=== PATIENT | male | born 1980 | race Caucasian/White ===

== ENCOUNTER 2018-11-19 22:20 | Inpatient (IN) | payer MEDICAID, OTHER ==
[~2018-11-19] VITALS: Ht 157.5 cm; Wt 66.0 kg
[2018-11-20] MEDS ORDERED: IBUPROFEN 600 MG TAB PO ONE (00:30)
--- NOTE | 2018-11-20 00:50 | ERD ---
ER Documentation Chief Complaint Chief Complaint left knee pain/injury while playing soccer x 1 hour ago HPI Patient is a 38-year-old male who presents the ER for concerns of left knee pain x1 hour. Patient was playing soccer when he injured his left knee. He states he twisted and has pain on the lateral aspect of his left knee. Patient denies any head injuries. Patient denies any previous fractures or dislocations. Patient has not taken medications for symptoms. ROS All systems reviewed and are negative except as per history of present illness. Allergies Allergies: Coded Allergies: No Known Drug Allergies (Verified Allergy, Unknown, 11/19/18) PMhx/Soc Medical and Surgical Hx: pt denies Medical Hx, pt denies Surgical Hx Hx Alcohol Use: No Hx Substance Use: No Hx Tobacco Use: No Smoking Status: Never smoker FmHx Family History: No diabetes Physical Exam Vitals Vital Signs Date Temp Pulse Resp B/P (MAP) Pulse Ox O2 O2 Flow FiO2 Time Delivery Rate 11/19/18 98.2 98 18 155/94 99 22:26 (114) Physical Exam GENERAL: Well-developed, well-nourished male. Appears in no acute distress. Speaking in full sentences HEAD: Normocephalic, atraumatic. EYES: Pupils are equally reactive bilaterally. EOMs grossly intact. No conjunctival erythema. ENT: Moist mucous membranes. No uvula deviation. No kissing tonsils. NECK: Supple. No meningismus. Normal range of motion of the neck. LUNG: Clear to auscultation bilaterally. No rhonchi, wheezing, rales or coarse breath sounds. HEART: Regular rate and rhythm. No murmurs, rubs or gallops. EXTREMITIES: Equal pulses bilaterally. No peripheral clubbing, cyanosis or edema. No unilateral leg swelling. NEUROLOGIC: Alert and oriented. Moving all four extremities without any difficulty. Normal speech. Steady gait. SKIN: Normal color. Warm and dry. No rashes or lesions. LLE: No deformity, erythema, ecchymosis or swelling. 1 cm linear abrasion noted across the anterior knee. Tender to palpation over the lateral knee. Nontender palpation over the distal tibia/fibula, midfoot, fifth metatarsal. Decreased range of motion secondary to pain. Unable to extend or flex knee. Normal range of motion of all toes and ankle. Sensation intact to light touch. Neurovascularly intact. (Able to plantarflex, dorsiflex, aguila foot, invert foot, raise big toe.) 2+ DP and DT pulses. Results 24 hrs Current Medications Medications Dose Sig/Arlen Start Time Status Last (Trade) Ordered Route PRN Stop Time Admin Dose Reason Admin Ibuprofen 600 mg ONCE ONCE 11/20/18 DC 11/20/18 (Motrin) PO 00:30 11/20/18 00:19 00:31 1 tab ONCE ONCE 11/20/18 DC Acetaminophen PO 03:30 11/20/18 / 03:31 Hydrocodone Bitart ([place] ()) Procedures/MDM ED COURSE: The patient was stable throughout ED course. I kept the patient and/or family informed of laboratory and diagnostic imaging results throughout the ED course. DIAGNOSTIC IMAGING: Read by radiologist. DIAGNOSTIC IMAGING REPORT Patient: MARVIN PLATT : 1980 Age: 38 Sex: M MR #: [id number] DOS: 11/20/18 0011 Ordering MD: FARRUKH CHRISTY PA-C Location: [facility] Room/Bed: PROCEDURE: XR Knee Left 3 View (Routine) CLINICAL INDICATION: Pain. TECHNIQUE: VIEWS: 3 IMAGES: 3 COMPARISON: None. FINDINGS: OSSEOUS STRUCTURES Fractures: Tibial plateau fracture is present with transverse component involving the proximal tibial diametaphysis and mildly displaced and impacted oblique component extending through the tibial spine region into the lateral diametaphysis. There is additional comminuted fracture of the fibular neck with a butterfly fragment displaced up to 1.2 cm posteriorly. There is approximately 1 cm of impaction of the fibular neck. JOINTS Joint Space(s): Otherwise preserved. Effusion: Moderate large lipohemarthrosis is present. IMPRESSION: 1. Schatzker type 6 fracture of the tibial plateau with transverse diametaphyseal component and additional component extending through the tibial spine region and lateral diametaphysis. There is mild impaction of the lateral diametaphysis. 2. Comminuted displaced fracture of the fibular neck. RPTAT:HGST Marquis Marie, Physician Date Time Electronically viewed and signed by Marquis Marie Physician on 11/20/2018 02:11 GT/ CC: FARRUKH CHRISTY PA-C [id number] MEDICAL DECISION MAKING: This is a 38-year-old male presents the ER for concerns of left knee pain x1 hour. Vital signs were reviewed. Patient was afebrile. Xrays showed 1. Schatzker type 6 fracture of the tibial plateau with transverse diametaphyseal component and additional component extending through the tibial spine region and lateral diametaphysis. There is mild impaction of the lateral diametaphysis. 2. Comminuted displaced fracture of the fibular neck. Patient was given ibuprofen and [place] for his pain. At this time, unable to rule out any meniscus and knee ligament injuries. I did attempt to place a knee immobilizer on the patient however he was unable to straighten his leg secondary to severe pain. Case was discussed with supervising physician Dr. Pierson. Numerous attempts to contact Dr. Oneal, telesales specialist on-call, were made to discuss xray findings. No phone back was received. Patient will be admitted for further management of his tibial plateau fracture and fibular neck fracture. Low suspicion for compartment syndrome. Disclaimer: Inadvertent spelling and grammatical errors are likely due to EHR/dictation software use and do not reflect on the overall quality of patient care. Also, please note that the electronic time recorded on this note does not necessarily reflect the actual time of the patient encounter. Departure Diagnosis: Primary Impression: Tibial plateau fracture, left Encounter type: initial encounter Fracture type: closed Qualified Codes: S82.142A - Displaced bicondylar fracture of left tibia, initial encounter for closed fracture Additional Impression: Fracture of neck of fibula Encounter type: initial encounter Fracture type: closed Laterality: left Qualified Codes: S82.832A - Other fracture of upper and lower end of left fibula, initial encounter for closed fracture Condition: Fair Patient Instructions: Reducing Knee Pain and Swelling Referrals: COMMUNITY CLINICS YOU HAVE RECEIVED A MEDICAL SCREENING EXAM AND THE RESULTS INDICATE THAT YOU DO NOT HAVE A CONDITION THAT REQUIRES URGENT TREATMENT IN THE EMERGENCY DEPARTMENT. FURTHER EVALUATION AND TREATMENT OF YOUR CONDITION CAN WAIT UNTIL YOU ARE SEEN IN YOUR DOCTORS OFFICE WITHIN THE NEXT 1-2 DAYS. IT IS YOUR RESPONSIBILITY TO [facility] AN [facility]. IF YOU HAVE A PRIMARY DOCTOR --you should call your primary doctor and schedule an appointment IF YOU DO NOT HAVE A PRIMARY DOCTOR YOU CAN CALL OUR PHYSICIAN REFERRAL HOTLINE AT IF YOU CAN NOT AFFORD TO SEE A PHYSICIAN YOU CAN CHOSE FROM THE FOLLOWING [facility] [address] [facility] [address] [facility] [address] [facility] [address] [facility] [address] [facility]. [facility] [address] [facility]. [facility] YOU HAVE RECEIVED A MEDICAL SCREENING EXAM AND THE RESULTS INDICATE THAT YOU DO NOT HAVE A CONDITION THAT REQUIRES URGENT TREATMENT IN THE EMERGENCY DEPARTMENT. FURTHER EVALUATION AND TREATMENT OF YOUR CONDITION CAN WAIT UNTIL YOU ARE SEEN IN YOUR DOCTORS OFFICE WITHIN THE NEXT 1-2 DAYS. IT IS YOUR RESPONSIBILITY TO MAKE AN APPOINTMENT FOR [facility]OW-UP CARE. IF YOU HAVE A PRIMARY DOCTOR --you should call your primary doctor and schedule and appointment IF YOU DO NOT HAVE A PRIMARY DOCTOR YOU CAN CALL OUR PHYSICIAN REFERRAL HOTLINE AT . IF YOU CAN NOT AFFORD TO SEE A PHYSICIAN YOU CAN CHOSE FROM THE FOLLOWING [facility] [address] [place] [address] [facility] [address] [place] [address] [facility] [address] [place] [address] [facility] 7 a.m.- 11 p.m. Every Day of the Week NO APPOINTMENT OR AUTHORIZATION NEEDED FARRUKH CHRISTY PA-C November 20, 2018 00:50
[2018-11-20] MEDS ORDERED: HYDROCODONE/APAP (10/325) TAB PO ONE (03:30)
[2018-11-20 06:10] VITALS: BP 128/76; PULSE 87; RESP 18
[2018-11-20 07:00] VITALS: BP 118/61; PULSE 92; RESP 18
[2018-11-20] MEDS ORDERED: HYDROCODONE/APAP (5/325) TAB PO PRN (07:30)
[2018-11-20] MEDS ORDERED: ACETAMINOPHEN 325 MG TAB PO PRN (07:30)
[2018-11-20] MEDS ORDERED: ONDANSETRON 4 MG INJ IV PRN (07:30)
[2018-11-20] MEDS ORDERED: NACL 0.9% 3 ML SYG IV SCH (07:30)
[2018-11-20 08:00] VITALS: Ht 157.5 cm; Wt 66.0 kg
[2018-11-20] MEDS: morphine 2 MG INJ IV PRN ×3 (08:04→16:25)
--- NOTE | 2018-11-20 09:30 | HP ---
Date/Time of Note Date/Time of Note DATE: 11/20/18 TIME: 09:27 Assessment/Plan VTE Prophylaxis Risk score (from Nsg)>0 risk: 7 SCD applied (from Nsg): Yes Pharmacological prophylaxis: heparin Lines/Catheters IV Catheter Type (from Nrsg): Peripheral IV Urinary Cath still in place: No Assessment/Plan Assessment/Plan 38-year-old male with no significant past medical history here with left leg injury while playing soccer is found to have a tibia and fibula fracture PLAN -Pain management -Awaiting Ortho evaluation Result Diagram: 11/20/18 0507 11/20/18 0507 Results 24hrs Laboratory Tests Test 11/20/18 05:07 White Blood Count 12.9 H Red Blood Count 4.48 L Hemoglobin 13.3 L Hematocrit 39.1 L Mean Corpuscular Volume 87.3 Mean Corpuscular Hemoglobin 29.7 Mean Corpuscular Hemoglobin Concent 34.0 Red Cell Distribution Width 14.5 Platelet Count 229 Mean Platelet Volume 10.6 H Immature Granulocytes % 0.400 Neutrophils % 75.3 Lymphocytes % 17.5 Monocytes % 6.2 Eosinophils % 0.3 Basophils % 0.3 Nucleated Red Blood Cells % 0.0 Immature Granulocytes # 0.050 H Neutrophils # 9.7 H Lymphocytes # 2.3 Monocytes # 0.8 Eosinophils # 0.0 Basophils # 0.0 Nucleated Red Blood Cells # 0.0 Prothrombin Time 12.5 Prothrombin Time Ratio 1.0 INR International Normalized Ratio 0.92 Activated Partial Thromboplast Time 26.7 Sodium Level 142 Potassium Level 3.9 Chloride Level 108 Carbon Dioxide Level 21 Anion Gap 13 Blood Urea Nitrogen 14 Creatinine 0.60 L Est Glomerular Filtrat Rate mL/min > 60 Glucose Level 116 Calcium Level 9.3 Total Bilirubin 0.6 Direct Bilirubin 0.00 Indirect Bilirubin 0.6 Aspartate Amino Transf (AST/SGOT) 48 H Alanine Aminotransferase (ALT/SGPT) 55 Alkaline Phosphatase 129 H Total Protein 8.1 Albumin 4.6 Globulin 3.50 H Albumin/Globulin Ratio 1.31 HPI/ROS Admit Date/Time Admit Date/Time November 20, 2018 at 05:15 Hx of Present Illness This is a 38-year-old male with no past medical history who presented to ER complaining of left lower extremity pain. He was playing soccer when he twisted his left leg and since then has been having pain. When he came to the ER he was found to have a TV and fibula fracture. Dr. Oneal, orthopedic surgeon was consulted in the ER. PMH/Family/Social Past Medical History Medical History: no pertinent history Medications Current Medications IV Flush (NS 3 ml) 3 ml PER PROTOCOL IV ; Start 11/20/18 at 07:30 Ondansetron HCl (Zofran Inj) 4 mg Q6H PRN IV NAUSEA/VOMITING; Start 11/20/18 at 07:30 Acetaminophen (Tylenol Tab) 650 mg Q6H PRN PO .PAIN 1-3 OR TEMP; Start 11/20/18 at 07:30 Acetaminophen/ Hydrocodone Bitart ([place] (5/325)) 1 tab Q6H PRN PO .MOD PAIN 4- 6; Start 11/20/18 at 07:30 Acetaminophen/ Hydrocodone Bitart ([place] (5/325)) 2 tab Q6H PRN PO .SEVERE PAIN 7-10; Start 11/20/18 at 07:30 Morphine Sulfate (morphine) 3 mg Q4H PRN IV .SEVERE PAIN 7-10 Last administered on 11/20/18at 08:04; Admin Dose 3 MG; Start 11/20/18 at 07:30 Coded Allergies: No Known Drug Allergies (Verified Allergy, Unknown, 11/19/18) Past Surgical History Past Surgical Hx: no surgical history Family History Significant Family History: no pertinent family hx Social History Alcohol Use: none Smoking Status: Never smoker Drug Use: none Exam/Review of Systems Vital Signs Vitals Vital Signs Date Temp Pulse Resp B/P (MAP) Pulse Ox O2 O2 Flow FiO2 Time Delivery Rate 11/20/18 98.6 87 18 128/76 96 06:10 (93) Exam Constitutional: alert, oriented, well developed Head: normocephalic, atraumatic Eyes: EOMI, PERRL Respiratory: clear to auscultation, normal air movement Cardiovascular: regular rate and rhythm, nl pulses Gastrointestinal: soft, non-tender Extremities: other (Left lower extremity tenderness) STANLEY HWANG MD November 20, 2018 09:30
--- NOTE | 2018-11-20 13:53 | PN ---
Date/Time of Note Date/Time of Note DATE: 11/20/18 TIME: 13:43 Assessment/Plan VTE Prophylaxis Risk score (from [facility])>0 risk: 7 SCD applied (from [facility]): Yes Pharmacological prophylaxis: NA/contraindicated Pharm contraindication: low risk/ambulating Lines/Catheters IV Catheter Type (from [facility]): Peripheral IV Urinary Cath still in place: No Assessment/Plan Hospital Course A/P 1. Tibial Plateau fracture; stable; may proceed to surgery from medical standpoint w low perio risk 2. Ftt; pt/ot/ dme soon S: no events O: vss PE no pallor reg s1s2 no mrg ctab bs+ nt nd no r r g no edema Result Diagram: 11/20/18 0507 11/20/18 0507 Results 24hrs Laboratory Tests Test 11/20/18 05:07 White Blood Count 12.9 H Red Blood Count 4.48 L Hemoglobin 13.3 L Hematocrit 39.1 L Mean Corpuscular Volume 87.3 Mean Corpuscular Hemoglobin 29.7 Mean Corpuscular Hemoglobin Concent 34.0 Red Cell Distribution Width 14.5 Platelet Count 229 Mean Platelet Volume 10.6 H Immature Granulocytes % 0.400 Neutrophils % 75.3 Lymphocytes % 17.5 Monocytes % 6.2 Eosinophils % 0.3 Basophils % 0.3 Nucleated Red Blood Cells % 0.0 Immature Granulocytes # 0.050 H Neutrophils # 9.7 H Lymphocytes # 2.3 Monocytes # 0.8 Eosinophils # 0.0 Basophils # 0.0 Nucleated Red Blood Cells # 0.0 Prothrombin Time 12.5 Prothrombin Time Ratio 1.0 INR International Normalized Ratio 0.92 Activated Partial Thromboplast Time 26.7 Sodium Level 142 Potassium Level 3.9 Chloride Level 108 Carbon Dioxide Level 21 Anion Gap 13 Blood Urea Nitrogen 14 Creatinine 0.60 L Est Glomerular Filtrat Rate mL/min > 60 Glucose Level 116 Calcium Level 9.3 Total Bilirubin 0.6 Direct Bilirubin 0.00 Indirect Bilirubin 0.6 Aspartate Amino Transf (AST/SGOT) 48 H Alanine Aminotransferase (ALT/SGPT) 55 Alkaline Phosphatase 129 H Total Protein 8.1 Albumin 4.6 Globulin 3.50 H Albumin/Globulin Ratio 1.31 Exam/Review of Systems Exam Vitals Vital Signs Date Temp Pulse Resp B/P (MAP) Pulse Ox O2 O2 Flow FiO2 Time Delivery Rate 11/20/18 98.3 92 18 118/61 96 07:00 (80) Results Results 24hrs Laboratory Tests Test 11/20/18 05:07 White Blood Count 12.9 H Red Blood Count 4.48 L Hemoglobin 13.3 L Hematocrit 39.1 L Mean Corpuscular Volume 87.3 Mean Corpuscular Hemoglobin 29.7 Mean Corpuscular Hemoglobin Concent 34.0 Red Cell Distribution Width 14.5 Platelet Count 229 Mean Platelet Volume 10.6 H Immature Granulocytes % 0.400 Neutrophils % 75.3 Lymphocytes % 17.5 Monocytes % 6.2 Eosinophils % 0.3 Basophils % 0.3 Nucleated Red Blood Cells % 0.0 Immature Granulocytes # 0.050 H Neutrophils # 9.7 H Lymphocytes # 2.3 Monocytes # 0.8 Eosinophils # 0.0 Basophils # 0.0 Nucleated Red Blood Cells # 0.0 Prothrombin Time 12.5 Prothrombin Time Ratio 1.0 INR International Normalized Ratio 0.92 Activated Partial Thromboplast Time 26.7 Sodium Level 142 Potassium Level 3.9 Chloride Level 108 Carbon Dioxide Level 21 Anion Gap 13 Blood Urea Nitrogen 14 Creatinine 0.60 L Est Glomerular Filtrat Rate mL/min > 60 Glucose Level 116 Calcium Level 9.3 Total Bilirubin 0.6 Direct Bilirubin 0.00 Indirect Bilirubin 0.6 Aspartate Amino Transf (AST/SGOT) 48 H Alanine Aminotransferase (ALT/SGPT) 55 Alkaline Phosphatase 129 H Total Protein 8.1 Albumin 4.6 Globulin 3.50 H Albumin/Globulin Ratio 1.31 Medications Medication Current Medications IV Flush (NS 3 ml) 3 ml PER PROTOCOL IV ; Start 11/20/18 at 07:30 Ondansetron HCl (Zofran Inj) 4 mg Q6H PRN IV NAUSEA/VOMITING; Start 11/20/18 at 07:30 Acetaminophen (Tylenol Tab) 650 mg Q6H PRN PO .PAIN 1-3 OR TEMP; Start 11/20/18 at 07:30 Acetaminophen/ Hydrocodone Bitart ([place] (5/325)) 1 tab Q6H PRN PO .MOD PAIN 4- 6; Start 11/20/18 at 07:30 Acetaminophen/ Hydrocodone Bitart ([place] (5/325)) 2 tab Q6H PRN PO .SEVERE PAIN 7-10; Start 11/20/18 at 07:30 Morphine Sulfate (morphine) 3 mg Q4H PRN IV .SEVERE PAIN 7-10 Last administered on 11/20/18at 11:30; Admin Dose 3 MG; Start 11/20/18 at 07:30 JAQUELINE SMITH MD November 20, 2018 13:53
[2018-11-20] MEDS: HYDROCODONE/APAP (5/325) TAB PO PRN ×2 (14:14→20:01)
[2018-11-20 15:05] VITALS: BP 135/77; PULSE 92; RESP 18
[2018-11-20] MEDS ORDERED: KETOROLAC 30 MG INJ IV STA (18:36)
--- NOTE | 2018-11-20 19:06 | RADRPT ---
Vent Rate: 81 bpm RR Interval: 740 msec [place] Interval: 146 msec QRS Duration: 80 msec QT Interval: 352 msec QTC Interval: 409 msec P-R-T [place]: 37 - 75 - -9 degrees Sinus rhythm...normal P axis, V-rate 50- 99 ST elevation, consider lateral injury...ST >0.10mV, I aVL V5 V6 Electronically Signed By: aPrish Lenz
[2018-11-20 19:15] VITALS: BP 124/73; PULSE 82; RESP 20
[2018-11-21 02:05] VITALS: BP 115/75; PULSE 81; RESP 20
[2018-11-21] MEDS: HYDROCODONE/APAP (5/325) TAB PO PRN (05:51)
[2018-11-21 07:52] VITALS: BP 110/64; PULSE 88; RESP 18
[2018-11-21] MEDS: morphine 2 MG INJ IV PRN ×2 (08:05→12:48)
--- NOTE | 2018-11-21 11:41 | PN ---
Date/Time of Note Date/Time of Note DATE: 11/21/18 TIME: 11:39 Assessment/Plan VTE Prophylaxis Risk score (from Nsg)>0 risk: 7 SCD applied (from Ns): Yes SCD contraindicated: low risk/ambulating Pharmacological prophylaxis: LMWH Lines/Catheters IV Catheter Type (from Nrsg): Peripheral IV Urinary Cath still in place: No Assessment/Plan Hospital Course A/P 1. Tibial Plateau fracture; stable; may proceed to surgery from medical standpoint w low perio risk - ekg noted; will obtain 1 troponin & echo; completely asymptomatic, no cardiac risk factors. 2. Ftt; pt/ot/ dme soon S: 11/20: no events 11/21: no distress. able to participate w soccer w/o any dyspnea/ chest pain. no FH of early cad/ cancer/ stroke. O: vss PE no pallor reg s1s2 no mrg ctab bs+ nt nd no r r g no edema Result Diagram: 11/21/18 0420 11/21/18 0420 Results 24hrs Laboratory Tests Test 11/21/18 04:20 White Blood Count 8.2 # Red Blood Count 4.17 L Hemoglobin 12.4 L Hematocrit 37.7 L Mean Corpuscular Volume 90.4 Mean Corpuscular Hemoglobin 29.7 Mean Corpuscular Hemoglobin Concent 32.9 Red Cell Distribution Width 14.8 H Platelet Count 217 Mean Platelet Volume 10.7 H Immature Granulocytes % 0.600 H Neutrophils % 58.3 Lymphocytes % 30.0 Monocytes % 7.9 Eosinophils % 2.8 Basophils % 0.4 Nucleated Red Blood Cells % 0.0 Immature Granulocytes # 0.050 H Neutrophils # 4.8 Lymphocytes # 2.5 Monocytes # 0.7 Eosinophils # 0.2 Basophils # 0.0 Nucleated Red Blood Cells # 0.0 Sodium Level 140 Potassium Level 4.7 Chloride Level 103 Carbon Dioxide Level 28 Anion Gap 9 Blood Urea Nitrogen 10 Creatinine 0.75 Est Glomerular Filtrat Rate mL/min > 60 Glucose Level 112 Hemoglobin A1c 5.5 Calcium Level 9.4 Phosphorus Level 4.8 Magnesium Level 2.3 Total Bilirubin 0.8 Direct Bilirubin 0.00 Indirect Bilirubin 0.8 Aspartate Amino Transf (AST/SGOT) 34 Alanine Aminotransferase (ALT/SGPT) 47 Alkaline Phosphatase 123 H Total Protein 7.4 Albumin 4.3 Globulin 3.10 Albumin/Globulin Ratio 1.38 Thyroid Stimulating Hormone (TSH) 3.620 Exam/Review of Systems Exam Vitals Vital Signs Date Temp Pulse Resp B/P (MAP) Pulse Ox O2 O2 Flow FiO2 Time Delivery Rate 11/21/18 99.1 88 18 110/64 96 07:52 (79) 11/21/18 Room Air 02:05 Intake and Output 11/20/18 11/20/18 11/21/18 1515:00 23:00 07:00 IntakeIntake Total 200 ml OutputOutput Total 450 ml 600 ml BalanceBalance -450 ml -400 ml Results Results 24hrs Laboratory Tests Test 11/21/18 04:20 White Blood Count 8.2 # Red Blood Count 4.17 L Hemoglobin 12.4 L Hematocrit 37.7 L Mean Corpuscular Volume 90.4 Mean Corpuscular Hemoglobin 29.7 Mean Corpuscular Hemoglobin Concent 32.9 Red Cell Distribution Width 14.8 H Platelet Count 217 Mean Platelet Volume 10.7 H Immature Granulocytes % 0.600 H Neutrophils % 58.3 Lymphocytes % 30.0 Monocytes % 7.9 Eosinophils % 2.8 Basophils % 0.4 Nucleated Red Blood Cells % 0.0 Immature Granulocytes # 0.050 H Neutrophils # 4.8 Lymphocytes # 2.5 Monocytes # 0.7 Eosinophils # 0.2 Basophils # 0.0 Nucleated Red Blood Cells # 0.0 Sodium Level 140 Potassium Level 4.7 Chloride Level 103 Carbon Dioxide Level 28 Anion Gap 9 Blood Urea Nitrogen 10 Creatinine 0.75 Est Glomerular Filtrat Rate mL/min > 60 Glucose Level 112 Hemoglobin A1c 5.5 Calcium Level 9.4 Phosphorus Level 4.8 Magnesium Level 2.3 Total Bilirubin 0.8 Direct Bilirubin 0.00 Indirect Bilirubin 0.8 Aspartate Amino Transf (AST/SGOT) 34 Alanine Aminotransferase (ALT/SGPT) 47 Alkaline Phosphatase 123 H Total Protein 7.4 Albumin 4.3 Globulin 3.10 Albumin/Globulin Ratio 1.38 Thyroid Stimulating Hormone (TSH) 3.620 Medications Medication Current Medications IV Flush (NS 3 ml) 3 ml PER PROTOCOL IV ; Start 11/20/18 at 07:30 Ondansetron HCl (Zofran Inj) 4 mg Q6H PRN IV NAUSEA/VOMITING; Start 11/20/18 at 07:30 Acetaminophen (Tylenol Tab) 650 mg Q6H PRN PO .PAIN 1-3 OR TEMP; Start 11/20/18 at 07:30 Morphine Sulfate (morphine) 3 mg Q4H PRN IV .SEVERE PAIN 7-10 Last administered on 11/21/18at 08:05; Admin Dose 3 MG; Start 11/20/18 at 07:30 Acetaminophen/ Hydrocodone Bitart ([place] ()) 1 tab Q4H PRN PO MODERATE PAIN LEVEL 4-6; Start 11/21/18 at 12:00 Enoxaparin Sodium (Lovenox) 40 mg DAILY SC ; Start 11/22/18 at 21:00 JAQUELINE SMITH MD November 21, 2018 11:41
[2018-11-21 13:31] VITALS: BP 125/62; PULSE 81; RESP 18
--- NOTE | 2018-11-21 13:47 | RADRPT ---
Echocardiogram Report Patient Name: MARVIN PLATTPatient ID: [id number] : 1980 (38y 10m)Study Date: 11/21/2018 12:44:09 PM Gender: MAccession #: [id number] Tech: Riley [facility] Location: [facility] Ref.Physician: JAQUELINE SMITH Height(Cm): BSA: Weight(Kg): Quality: AdequateAccount #: Procedures: Echocardiographic Report: Transthoracic echocardiogram with complete 2D, M-Mode, and doppler examination. Indications: Abnormal EKG. Measurements: 2D/M Mode Doppler Measurement Value Normal Range Measurement Value Normal Range LVIDd 2D 4.5 [ 4.2 - 5.8 ] cm AV Peak Arslan 1.5 [ 100.0 - 170.0 ] cm/sec LVIDs 2D 2.6 [ 2.5 - 4.0 ] cm AV Peak PG 9.0 [ 2.0 - 9.0 ] mmHg LVPWd 2D 1.0 [ 0.6 - 1.0 ] cm LVOT Peak [place]slan 1.0 [ 70.0 - 110.0 ] cm/sec IVSd 2D 0.9 [ 0.6 - 1.0 ] cm LVOT Peak PG 4.0 [ 2.0 - 6.0 ] mmHg AoR Diam 2D 2.7 [ 2.6 - 3.4 ] cm MV E Peak Arslan 0.8 [ 60.0 - 130.0 ] cm/sec EDV 2D 93.9 [ 62.0 - 150.0 ] ml MV A Peak Arslan 0.6 [ 100.0 - 120.0 ] cm/sec ESV 2D 23.7 [ 21.0 - 61.0 ] ml MV E/A 1.4 [ 0.8 - 1.5 ] ratio EF 2D 74.8 [ 52.0 - 72.0 ] percent MV Decel Time 194 [ 104 - 258 ] msec LA Dimen 2D 2.8 [ 3.0 - 4.0 ] cm Lat E` Arslan 0.1 [ 10.0 - 15.0 ] cm/sec Lateral E/E` 6.5 [ 1.0 - 2.0 ] ratio MV E/A 1.4 [ 0.8 - 1.5 ] ratio TR Peak Arslan 1.9 [ 100.0 - 280.0 ] cm/sec TR Peak PG 14.0 mmHg RVSP 17.0 [ 10.0 - 36.0 ] mmHg Findings: Left Ventricle: Normal left ventricular systolic function. Normal left ventricular cavity size. Normal left ventricular wall thickness. Ejection fraction is visually estimated at 60 %. Tissue Doppler/Mitral Doppler indices are within normal limits. Right Ventricle: Normal right ventricular size. Normal right ventricular systolic function. Left Atrium: The left atrium is normal in size. Right Atrium: The right atrium is normal in size. Mitral Valve: Normal appearance and function of the mitral valve with trace physiologic regurgitation. Aortic Valve: Normal appearance of the aortic valve. No hemodynamically significant aortic stenosis by doppler. Tricuspid Valve: Normal appearance of the tricuspid valve. Estimated peak PA systolic pressure 17 mmHg. There is trace tricuspid regurgitation. Pericardium: Normal pericardium with no significant pericardial effusion. Aorta: Normal aortic root. IVC: Normal size and normal respiratory collapse consistent with normal right atrial pressure. Conclusions: Normal left ventricular systolic function. Normal left ventricular cavity size. Normal left ventricular wall thickness. Ejection fraction is visually estimated at 60 %. Tissue Doppler/Mitral Doppler indices are within normal limits. Normal right ventricular size. Normal right ventricular systolic function. The left atrium is normal in size. The right atrium is normal in size. No significant valvular stenosis or regurgitation seen. Normal pericardium with no significant pericardial effusion. Electronically Signed By: Parish Lenz 2018-11-21 13:47:30 PDT
[2018-11-21] MEDS: HYDROCODONE/APAP (10/325) TAB PO PRN ×2 (15:15→21:14)
--- NOTE | 2018-11-21 19:26 | CONS ---
DATE OF ADMISSION: 11/20/2018 DATE OF CONSULTATION: 11/21/2018 TYPE OF CONSULTATION: Orthopedic surgical. HISTORY OF PRESENT ILLNESS: The patient is a 38-year-old male who was admitted on 11/20/2018 when he was brought into the emergency room because of the painful swelling and limit of motion involving hi s left knee. According to the patient, he sustained valgus stress injury to his left knee when he wa s hit from the lateral side of the proximal portion of the left leg during a soccer game. Denies any other trauma. PHYSICAL EXAMINATION: My examination revealed a 38-year-old male who was not in acute distress. The re was a diffuse swelling around the left knee with the tenderness over the lateral aspect of the pro ximal portion of the left leg. Range of motion of the left knee was considerably limited because of the pain and swelling. Stress test was not carried out because of the obvious pain. There was no ob vious neurovascular compromise involving the left lower extremity. DIAGNOSTIC STUDIES: X-rays of the left knee revealed an obvious fracture involving the lateral tibia l plateau with mild compression along with the fracture involving the fibular neck at the left knee. DIAGNOSTIC IMPRESSION: Lateral tibial plateau fracture of the left knee with mild compression. TREATMENT PLAN: 1. Absolutely no weightbearing. 2. Long leg brace immobilization of the left lower extremity in a long leg brace with a dial lock at the knee joint. 3. CT scan of the left knee with 3D reformation. 4. Further treatment plan pending on the outcome of the CT scan. Dictated By: TERRA GALICIA MD IK/NTS Conf#: [id number] DID#: [id number] CC: STANLEY HWANG MD; JAQUELINE SMITH MD;*EndCC*
[2018-11-21 19:44] VITALS: BP 128/82; PULSE 80; RESP 18
[2018-11-21] MEDS ORDERED: KETOROLAC 30 MG INJ IV STA (20:41)
[2018-11-22 02:37] VITALS: BP 120/80; PULSE 78; RESP 18
[2018-11-22 07:24] VITALS: BP 118/72; PULSE 72; RESP 14
[2018-11-22] MEDS: HYDROCODONE/APAP (10/325) TAB PO PRN ×3 (07:45→19:26)
[2018-11-22 14:33] VITALS: BP 139/81; PULSE 86; RESP 16
--- NOTE | 2018-11-22 15:54 | PN ---
Date/Time of Note Date/Time of Note DATE: 11/22/18 TIME: 15:53 Assessment/Plan VTE Prophylaxis Risk score (from Nsg)>0 risk: 10 SCD applied (from Nsg): Yes SCD contraindicated: low risk/ambulating Pharmacological prophylaxis: LMWH Lines/Catheters IV Catheter Type (from Nrsg): Peripheral IV Urinary Cath still in place: No Assessment/Plan Hospital Course A/P 1. Tibial Plateau fracture; stable; NWB surgery vs non operative mngmnt -may proceed to surgery from medical standpoint w low perio risk - ekg noted; obtained trop/ echo; completely asymptomatic, no cardiac risk factors. 2. Ftt; pt/ot/ dme soon S: 11/20: no events 11/21: no distress. able to participate w soccer w/o any dyspnea/ chest pain. no FH of early cad/ cancer/ stroke. 11/22: No events O: vss PE no pallor reg s1s2 no mrg ctab bs+ nt nd no r r g no edema Result Diagram: 11/21/1841911/21/18 0420 Results 24hrs Laboratory Tests Test 11/22/18 04:49 Troponin I < 0.012 Exam/Review of Systems Exam Vitals Vital Signs Date Temp Pulse Resp B/P (MAP) Pulse Ox O2 O2 Flow FiO2 Time Delivery Rate 11/22/18 98.5 86 16 139/81 100 Room Air 14:33 (100) Intake and Output 11/21/18 11/21/18 11/22/18 1515:00 23:00 07:00 IntakeIntake Total 120 ml 300 ml OutputOutput Total 300 ml 900 ml BalanceBalance -300 ml 120 ml -600 ml Results Results 24hrs Laboratory Tests Test 11/22/18 04:49 Troponin I < 0.012 Medications Medication Current Medications IV Flush (NS 3 ml) 3 ml PER PROTOCOL IV ; Start 11/20/18 at 07:30 Ondansetron HCl (Zofran Inj) 4 mg Q6H PRN IV NAUSEA/VOMITING; Start 11/20/18 at 07:30 Acetaminophen (Tylenol Tab) 650 mg Q6H PRN PO .PAIN 1-3 OR TEMP; Start 11/20/18 at 07:30 Morphine Sulfate (morphine) 3 mg Q4H PRN IV .SEVERE PAIN 7-10 Last administered on 11/21/18at 12:48; Admin Dose 3 MG; Start 11/20/18 at 07:30 Acetaminophen/ Hydrocodone Bitart ([place] ()) 1 tab Q4H PRN PO MODERATE PAIN LEVEL 4-6 Last administered on 11/22/18at 14:04; Admin Dose 1 TAB; Start 11/21/18 at 12:00 Enoxaparin Sodium (Lovenox) 40 mg DAILY SC ; Start 11/22/18 at 21:00 JAQUELINE SMITH MD November 22, 2018 15:54
[2018-11-22 19:20] VITALS: BP 153/85; PULSE 90; RESP 20
[2018-11-22] MEDS: morphine 2 MG INJ IV PRN (21:02)
[2018-11-22] MEDS: ENOXAPARIN 40 MG/0.4 ML SYG SC SCH (21:09)
[2018-11-22] MEDS ORDERED: MAGNESIUM HYDROXIDE 30ML CUP PO PRN (22:30)
[2018-11-22] MEDS ORDERED: MAGNESIUM HYDROXIDE 30ML CUP PO ONE (22:30)
[2018-11-23] MEDS: HYDROCODONE/APAP (10/325) TAB PO PRN ×4 (01:14→18:57)
[2018-11-23 02:35] VITALS: BP 132/75; PULSE 64; RESP 20
[2018-11-23 08:04] VITALS: BP 123/79; PULSE 72; RESP 18
[2018-11-23] MEDS: SENNA TAB PO SCH ×2 (08:27→21:11)
[2018-11-23] MEDS: ENOXAPARIN 40 MG/0.4 ML SYG SC SCH (08:32)
--- NOTE | 2018-11-23 13:42 | PN ---
Date/Time of Note Date/Time of Note DATE: 11/23/18 TIME: 13:41 Assessment/Plan VTE Prophylaxis Risk score (from Nsg)>0 risk: 5 SCD applied (from Nsg): Yes SCD contraindicated: low risk/ambulating Pharmacological prophylaxis: LMWH Lines/Catheters IV Catheter Type (from Nrsg): Peripheral IV Urinary Cath still in place: No Assessment/Plan Hospital Course A/P 1. Tibial Plateau fracture; stable; NWB surgery vs non operative mngmnt tbd. -may proceed to surgery from medical standpoint w low perio risk - ekg noted; obtained trop/ echo; completely asymptomatic, no cardiac risk factors. 2. Ftt; pt/ot/ dme soon S: 11/20: no events 11/21: no distress. able to participate w soccer w/o any dyspnea/ chest pain. no FH of early cad/ cancer/ stroke. 11/22: No events 11/23: mod pain; no dyspnea O: vss PE no pallor reg s1s2 no mrg ctab bs+ nt nd no r r g no edema; braced lt leg Result Diagram: 11/21/18 0420 11/21/18 0420 Exam/Review of Systems Exam Vitals Vital Signs Date Temp Pulse Resp B/P (MAP) Pulse Ox O2 O2 Flow FiO2 Time Delivery Rate 11/23/18 98.3 72 18 123/79 99 Room Air 08:04 (94) Intake and Output 11/22/18 11/22/18 11/23/18 1515:00 23:00 07:00 IntakeIntake Total 700 ml 200 ml 300 ml OutputOutput Total 900 ml 450 ml 1300 ml BalanceBalance -200 ml -250 ml -1000 ml Medications Medication Current Medications IV Flush (NS 3 ml) 3 ml PER PROTOCOL IV ; Start 11/20/18 at 07:30 Ondansetron HCl (Zofran Inj) 4 mg Q6H PRN IV NAUSEA/VOMITING; Start 11/20/18 at 07:30 Acetaminophen (Tylenol Tab) 650 mg Q6H PRN PO .PAIN 1-3 OR TEMP; Start 11/20/18 at 07:30 Morphine Sulfate (morphine) 3 mg Q4H PRN IV .SEVERE PAIN 7-10 Last administered on 11/22/18at 21:02; Admin Dose 3 MG; Start 11/20/18 at 07:30 Acetaminophen/ Hydrocodone Bitart ([place] ()) 1 tab Q4H PRN PO MODERATE PAIN LEVEL 4-6 Last administered on 11/23/18at 12:30; Admin Dose 1 TAB; Start 11/21/18 at 12:00 Enoxaparin Sodium (Lovenox) 40 mg DAILY SC Last administered on 11/23/18at 08:32; Admin Dose 40 MG; Start 11/22/18 at 21:00 Magnesium Hydroxide (Milk Of Mag) 30 ml Q12 PRN PO CONSTIPATION; Start 11/22/18 at 22:30 Senna (Senokot) 2 tab BID PO Last administered on 11/23/18at 08:27; Admin Dose 2 TAB; Start 11/23/18 at 09:00 JAQUELINE SMITH MD November 23, 2018 13:42
[2018-11-23 19:20] VITALS: BP 127/65; PULSE 76; RESP 20
[2018-11-23] MEDS: morphine 4 MG/ML VIAL IV PRN (21:15)
[2018-11-24 01:52] VITALS: BP 140/84; PULSE 78; RESP 16
[2018-11-24] MEDS: morphine 4 MG/ML VIAL IV PRN ×4 (01:57→18:29)
[2018-11-24 07:41] VITALS: BP 142/80; PULSE 76; RESP 18
[2018-11-24] MEDS: SENNA TAB PO SCH ×3 (09:00→19:54)
--- NOTE | 2018-11-24 11:42 | PN ---
Date/Time of Note Date/Time of Note DATE: 11/24/18 TIME: 11:42 Assessment/Plan VTE Prophylaxis Risk score (from Ns)>0 risk: 6 SCD applied (from Nsg): Yes Pharmacological prophylaxis: LMWH Lines/Catheters IV Catheter Type (from Nrsg): Saline Lock Urinary Cath still in place: No Assessment/Plan Hospital Course SUBJECTIVE: Complains of left knee pain. OBJECTIVE: Physical Exam General: Adequately build 38 year-old male lying in bed in no apparent distress. HEENT: Normocephalic, atraumatic. Eyes: Anicteric sclerae, conjunctivae clear. ENT: Nasal septum midline, oral mucosa moist. Neck supple, no JVD noticed. Respiratory: Bilaterally clear breath sounds. No use of accessory muscles of respiration. No adventitious breath sounds. Cardiovascular: S1, S2 heard. Regular rate and rhythm. Abdomen: Soft, nontender, and nondistended. Bowel sounds positive in all 4 quadrants. Genitourinary: Deferred. Extremities: No cyanosis, no clubbing, no edema. Peripheral pulses palpable. Left lower extremity long brace in place. Neurologic: Cranial nerves II through XII grossly intact. The patient is awake, alert, and oriented. Skin: Normal skin turgor. No skin rashes. Labs & Vitals per chart ASSESSMENT & PLAN 38-year-old male with no significant comorbidities who had a left knee pain/injury while playing soccer and he came to the emergency room with x-ray showing fracture of the tibial plateau with transverse metaphyseal component and additional component extending through the tibial spine region and lateral diametaphysis along with comminuted displaced fracture of the fibular neck who was admitted to inpatient setting for further treatment and evaluation. 1. Left tibial plateau fracture with fibula fracture -Status post immobilization and evaluation by orthopedic surgery. -Plan for ORIF. -Continue nonweightbearing. -Continue anticoagulation. 2. Normocytic anemia. -Etiology unclear. -Monitor H&H closely. 3. Fluids, electrolytes, and nutrition. -Regular diet. 4. DVT prophylaxis. -Subcutaneous Lovenox. 5. Plan. -Await ORIF. -Continue pain control. The patient was seen in collaboration with Dr. Yeh. Result Diagram: 11/21/1841911/21/18419 Exam/Review of Systems Exam Vitals Vital Signs Date Temp Pulse Resp B/P (MAP) Pulse Ox O2 O2 Flow FiO2 Time Delivery Rate 11/24/18 99.2 76 18 142/80 97 07:41 (100) 11/24/18 Room Air 01:52 Intake and Output 11/23/18 11/23/18 11/24/18 1515:00 23:00 07:00 IntakeIntake Total 500 ml 600 ml OutputOutput Total 1100 ml 800 ml BalanceBalance -600 ml -200 ml Medications Medication Current Medications IV Flush (NS 3 ml) 3 ml PER PROTOCOL IV ; Start 11/20/18 at 07:30 Ondansetron HCl (Zofran Inj) 4 mg Q6H PRN IV NAUSEA/VOMITING; Start 11/20/18 at 07:30 Acetaminophen (Tylenol Tab) 650 mg Q6H PRN PO .PAIN 1-3 OR TEMP; Start 11/20/18 at 07:30 Acetaminophen/ Hydrocodone Bitart ([place] (10/325)) 1 tab Q4H PRN PO MODERATE PAIN LEVEL 4-6 Last administered on 11/23/18at 18:57; Admin Dose 1 TAB; Start 11/21/18 at 12:00 Enoxaparin Sodium (Lovenox) 40 mg DAILY SC Last administered on 11/23/18at 08:32; Admin Dose 40 MG; Start 11/22/18 at 21:00; Status Hold Magnesium Hydroxide (Milk Of Mag) 30 ml Q12 PRN PO CONSTIPATION; Start 11/22/18 at 22:30 Senna (Senokot) 2 tab BID PO Last administered on 11/23/18at 21:11; Admin Dose 2 TAB; Start 11/23/18 at 09:00 Morphine Sulfate (morphine) 4 mg Q4H PRN IV .SEVERE PAIN 7-10 Last administered on 11/24/18at 07:56; Admin Dose 4 MG; Start 11/23/18 at 14:00 ANNIKA JOY NP November 24, 2018 11:42
[2018-11-24 13:47] VITALS: BP 139/77; PULSE 70; RESP 18
[2018-11-24] MEDS: HYDROCODONE/APAP (10/325) TAB PO PRN ×2 (17:17→22:15)
[2018-11-24 20:43] VITALS: BP 134/81; PULSE 91; RESP 18
[2018-11-25] VITALS (28 sets, daily range): BP systolic 111–175; BP diastolic 61–107; PULSE 72–120; RESP 13–23
[2018-11-25] MEDS: morphine 4 MG/ML VIAL IV PRN ×3 (02:12→12:26)
[2018-11-25] MEDS: HYDROCODONE/APAP (10/325) TAB PO PRN (06:03)
[2018-11-25] MEDS: SENNA TAB PO SCH ×2 (09:00→20:42)
--- NOTE | 2018-11-25 10:29 | PN ---
Date/Time of Note Date/Time of Note DATE: 11/25/18 TIME: 10:28 Assessment/Plan VTE Prophylaxis Risk score (from Ns)>0 risk: 7 SCD applied (from Nsg): Yes Pharmacological prophylaxis: LMWH Lines/Catheters IV Catheter Type (from Nrsg): Saline Lock Urinary Cath still in place: No Assessment/Plan Hospital Course SUBJECTIVE: Complains of left knee pain. OBJECTIVE: Physical Exam General: Adequately build 38 year-old male lying in bed in no apparent distress. HEENT: Normocephalic, atraumatic. Eyes: Anicteric sclerae, conjunctivae clear. ENT: Nasal septum midline, oral mucosa moist. Neck supple, no JVD noticed. Respiratory: Bilaterally clear breath sounds. No use of accessory muscles of respiration. No adventitious breath sounds. Cardiovascular: S1, S2 heard. Regular rate and rhythm. Abdomen: Soft, nontender, and nondistended. Bowel sounds positive in all 4 quadrants. Genitourinary: Deferred. Extremities: No cyanosis, no clubbing, no edema. Peripheral pulses palpable. Left lower extremity long brace in place. Neurologic: Cranial nerves II through XII grossly intact. The patient is awake, alert, and oriented. Skin: Normal skin turgor. No skin rashes. Labs & Vitals per chart ASSESSMENT & PLAN 38-year-old male with no significant comorbidities who had a left knee pain/injury while playing soccer and he came to the emergency room with x-ray showing fracture of the tibial plateau with transverse metaphyseal component and additional component extending through the tibial spine region and lateral diametaphysis along with comminuted displaced fracture of the fibular neck who was admitted to inpatient setting for further treatment and evaluation. 1. Left tibial plateau fracture with fibula fracture -Status post immobilization and evaluation by orthopedic surgery. -Plan for ORIF. -Continue nonweightbearing. -Continue anticoagulation. 2. Normocytic anemia. -Etiology unclear. -Monitor H&H closely. 3. Fluids, electrolytes, and nutrition. -Regular diet. 4. DVT prophylaxis. -Subcutaneous Lovenox. 5. Plan. -Await ORIF. -Continue pain control. The patient was seen in collaboration with Dr. Yeh. Result Diagram: 11/25/18 0452 11/25/18 0452 Results 24hrs Laboratory Tests Test 11/25/18 04:52 White Blood Count 8.8 Red Blood Count 4.29 L Hemoglobin 12.5 L Hematocrit 38.9 L Mean Corpuscular Volume 90.7 Mean Corpuscular Hemoglobin 29.1 Mean Corpuscular Hemoglobin Concent 32.1 Red Cell Distribution Width 13.9 Platelet Count 352 # Mean Platelet Volume 10.3 Immature Granulocytes % 0.300 Neutrophils % 57.6 Lymphocytes % 29.2 Monocytes % 6.4 Eosinophils % 6.0 Basophils % 0.5 Nucleated Red Blood Cells % 0.0 Immature Granulocytes # 0.030 Neutrophils # 5.1 Lymphocytes # 2.6 Monocytes # 0.6 Eosinophils # 0.5 Basophils # 0.0 Nucleated Red Blood Cells # 0.0 Sodium Level 140 Potassium Level 4.5 Chloride Level 99 Carbon Dioxide Level 29 Anion Gap 12 Blood Urea Nitrogen 18 Creatinine 0.78 Est Glomerular Filtrat Rate mL/min > 60 Glucose Level 110 Calcium Level 10.2 Phosphorus Level 5.4 H Magnesium Level 2.2 Exam/Review of Systems Exam Vitals Vital Signs Date Temp Pulse Resp B/P (MAP) Pulse Ox O2 O2 Flow FiO2 Time Delivery Rate 11/25/18 97.8 74 18 121/80 98 Room Air 08:03 (94) Intake and Output 11/24/18 11/24/18 11/25/18 1515:00 23:00 07:00 IntakeIntake Total 400 ml OutputOutput Total 300 ml 500 ml BalanceBalance 100 ml -500 ml Results Results 24hrs Laboratory Tests Test 11/25/18 04:52 White Blood Count 8.8 Red Blood Count 4.29 L Hemoglobin 12.5 L Hematocrit 38.9 L Mean Corpuscular Volume 90.7 Mean Corpuscular Hemoglobin 29.1 Mean Corpuscular Hemoglobin Concent 32.1 Red Cell Distribution Width 13.9 Platelet Count 352 # Mean Platelet Volume 10.3 Immature Granulocytes % 0.300 Neutrophils % 57.6 Lymphocytes % 29.2 Monocytes % 6.4 Eosinophils % 6.0 Basophils % 0.5 Nucleated Red Blood Cells % 0.0 Immature Granulocytes # 0.030 Neutrophils # 5.1 Lymphocytes # 2.6 Monocytes # 0.6 Eosinophils # 0.5 Basophils # 0.0 Nucleated Red Blood Cells # 0.0 Sodium Level 140 Potassium Level 4.5 Chloride Level 99 Carbon Dioxide Level 29 Anion Gap 12 Blood Urea Nitrogen 18 Creatinine 0.78 Est Glomerular Filtrat Rate mL/min > 60 Glucose Level 110 Calcium Level 10.2 Phosphorus Level 5.4 H Magnesium Level 2.2 Medications Medication Current Medications IV Flush (NS 3 ml) 3 ml PER PROTOCOL IV ; Start 11/20/18 at 07:30 Ondansetron HCl (Zofran Inj) 4 mg Q6H PRN IV NAUSEA/VOMITING; Start 11/20/18 at 07:30 Acetaminophen (Tylenol Tab) 650 mg Q6H PRN PO .PAIN 1-3 OR TEMP; Start 11/20/18 at 07:30 Acetaminophen/ Hydrocodone Bitart ([place] (10)) 1 tab Q4H PRN PO MODERATE PAIN LEVEL 4-6 Last administered on 11/25/18at 06:03; Admin Dose 1 TAB; Start 11/21/18 at 12:00 Enoxaparin Sodium (Lovenox) 40 mg DAILY SC Last administered on 11/23/18at 08:32; Admin Dose 40 MG; Start 11/22/18 at 21:00; Status Hold Magnesium Hydroxide (Milk Of Mag) 30 ml Q12 PRN PO CONSTIPATION; Start 11/22/18 at 22:30 Senna (Senokot) 2 tab BID PO Last administered on 11/24/18at 19:54; Admin Dose 2 TAB; Start 11/23/18 at 09:00 Morphine Sulfate (morphine) 4 mg Q4H PRN IV .SEVERE PAIN 7-10 Last administered on 11/25/18at 07:45; Admin Dose 4 MG; Start 11/23/18 at 14:00 ANNIKA JOY NP November 25, 2018 10:29
--- NOTE | 2018-11-25 17:48 | PREAC ---
Date/Time of Note Date/Time of Note DATE: 11/25/18 TIME: 17:43 Anesthesia Eval and Record Evaluation Time Pre-Procedure Interview DATE: 11/25/18 TIME: 17:43 Age 38 Sex male NPO: 8 hrs Preoperative diagnosis Lateral tibial plateau fracture of the left knee Planned procedure open reduction and internal fixation of lateral plateau fracture of left knee Past Medical History Past Medical History: None Surgery & Anesthesia Issues No known issue Meds Anticoagulation: No Beta Jeremiah within 24 hr: No Reason Beta Jeremiah not given: Pt. not on B-Jeremiah Current Medications IV Flush (NS 3 ml) 3 ml PER PROTOCOL IV ; Start 11/20/18 at 07:30 Ondansetron HCl (Zofran Inj) 4 mg Q6H PRN IV NAUSEA/VOMITING; Start 11/20/18 at 07:30 Acetaminophen (Tylenol Tab) 650 mg Q6H PRN PO .PAIN 1-3 OR TEMP; Start 11/20/18 at 07:30 Acetaminophen/ Hydrocodone Bitart ([place] (10/325)) 1 tab Q4H PRN PO MODERATE PAIN LEVEL 4-6 Last administered on 11/25/18at 06:03; Admin Dose 1 TAB; Start 11/21/18 at 12:00 Enoxaparin Sodium (Lovenox) 40 mg DAILY SC Last administered on 11/23/18at 08:32; Admin Dose 40 MG; Start 11/22/18 at 21:00; Status Hold Magnesium Hydroxide (Milk Of Mag) 30 ml Q12 PRN PO CONSTIPATION; Start 11/22/18 at 22:30 Senna (Senokot) 2 tab BID PO Last administered on 11/24/18at 19:54; Admin Dose 2 TAB; Start 11/23/18 at 09:00 Morphine Sulfate (morphine) 4 mg Q4H PRN IV .SEVERE PAIN 7-10 Last administered on 11/25/18at 12:26; Admin Dose 4 MG; Start 11/23/18 at 14:00 Meds reviewed: Yes Allergies Coded Allergies: No Known Drug Allergies (Verified Allergy, Unknown, 11/19/18) Allergies Reviewed: Yes Labs/Studies Labs Reviewed: Reviewed by anesthesiologist Result Diagram: 11/25/18 0452 11/25/18 0452 Laboratory Tests 11/25/18 04:52 test: N/A Pre-procedure Exam Last vitals Vital Signs Date Temp Pulse Resp B/P (MAP) Pulse Ox O2 O2 Flow FiO2 Time Delivery Rate 11/25/18 99.2 86 20 127/65 95 Room Air 17:01 (85) Airway: Adequate mouth opening, Adequate thyromental dist Mallampati: Mallampati II Teeth: Normal Lung: Normal Heart: Normal ASA Physical Status ASA physical status: 1 Emergency: None Planned Anesthetic Nerve block: Femoral (left) Planned Pain Management Single shot nerve block, Parenteral pain med Pre-operative Attestations Prior to commencing anesthesia and surgery, the patient was re-evaluated, there was verification of: *The patient's identity *The results of appropriate recent lab work and preoperative vital signs *The above evaluation not changing prior to induction *Anesthetic plan, risk benefits, alternative and complications discussed with patient/family; questions answered; patient/family understands, accepts and wishes to proceed. OSIRIS LY MD November 25, 2018 17:48
--- NOTE | 2018-11-25 18:17 | HPN ---
Date/Time of Note Date/Time of Note DATE: 11/25/18 TIME: 18:16 Interval H&P Admission Note Pt. seen H&P reviewed: No system changes ZENAIDA GALICIA MD November 25, 2018 18:17
[2018-11-25] MEDS ORDERED: SEVOFLURANE 15 MIN ONE (19:00)
[2018-11-25] MEDS ORDERED: MIDAZOLAM 1 MG/ML 2 ML INJ ONE (19:02)
[2018-11-25] MEDS ORDERED: SUCCINYLCHOLINE CHLORIDE 100 MG/5 ML SYG IV ONE (19:02)
[2018-11-25] MEDS ORDERED: POLYMYXIN/BACITRACIN 1L IRRIG IRR ONE (19:02)
[2018-11-25] MEDS ORDERED: LIDOCAINE 2% (SDV) 5 ML INJ ONE (19:02)
[2018-11-25] MEDS ORDERED: ROPIVACAINE 0.5 % 30 ML VIAL ONE (19:02)
[2018-11-25] MEDS ORDERED: ROCURONIUM 50 MG INJ ONE (19:02)
[2018-11-25] MEDS ORDERED: PROPOFOL 20 ML ONE (19:02)
[2018-11-25] MEDS ORDERED: CEFAZOLIN 1 GM INJ ONE (19:27)
[2018-11-25] MEDS ORDERED: DEXAMETHASONE 4 MG/ML 5 ML INJ ONE (19:38)
[2018-11-25] MEDS ORDERED: ONDANSETRON 4 MG INJ ONE (19:38)
[2018-11-25] MEDS ORDERED: FAMOTIDINE 20 MG INJ ONE (19:39)
[2018-11-25] MEDS ORDERED: EPHEDrine 25 MG/5 ML SYG ONE (19:51)
[2018-11-25] MEDS ORDERED: HYDROmorphONE 2 MG/ML SYG ONE (21:26)
[2018-11-25] MEDS ORDERED: FENTAnyl 50 MCG/ML VIAL IV PRN ×3 (21:30)
[2018-11-25] MEDS ORDERED: MEPERIDINE 25 MG INJ IV PRN (21:30)
[2018-11-25] MEDS ORDERED: ONDANSETRON 4 MG INJ IV PRN (21:30)
[2018-11-25] MEDS ORDERED: HYDROmorphONE 1 MG/5 ML IV SYRINGE IV PRN ×3 (21:30)
[2018-11-25] MEDS ORDERED: PROCHLORPERAZINE 10 MG INJ IV PRN (21:30)
[2018-11-25] MEDS ORDERED: DIPHENHYDRAMINE 50 MG INJ IV PRN (21:30)
--- NOTE | 2018-11-25 21:49 | PAC ---
Date/Time of Note Date/Time of Note DATE: 11/25/18 TIME: 21:46 Post-Anesthesia Notes Post-Anesthesia Note Last documented vital signs Vital Signs Date Temp Pulse Resp B/P (MAP) Pulse Ox O2 O2 Flow FiO2 Time Delivery Rate 11/25/18 99.7 21:42 11/25/18 86 20 127/65 95 Room Air 17:01 (85) Activity: WNL Respiratory function: WNL Cardiovascular function: WNL Mental status: Baseline Pain reasonably controlled: Yes Hydration appropriate: Yes Nausea/Vomiting absent: Yes Comments BP: 129/66 HR: 99 RR: 15 T: 99.4 SaO2: 99% OSIRIS LY MD November 25, 2018 21:49
--- NOTE | 2018-11-25 21:55 | SIPON ---
Date/Time of Note Date/Time of Note DATE: 11/25/18 TIME: 21:50 Operative Report Preoperative Diagnosis lateral tibial plateau fracture of left knee Postoperative Diagnosis same Operation/Procedure Performed O.R.I.F. of lateral ibial plateou fracture of left fracture of left knee Surgeon see signature line technical administrative assistant none Anesthesia: general Estimated blood loss: 250 - 300 ml's Transfusion Required none Specimen none Grafts/Implants none Complications none ZENAIDA GALICIA MD November 25, 2018 21:55
[2018-11-25] MEDS ORDERED: NACL 0.9% 3 ML SYG IV SCH (22:00)
[2018-11-25] MEDS ORDERED: oxyCODONE 5 MG TAB PO PRN (22:00)
[2018-11-25] MEDS: LABETALOL HCL 20MG INJ IV PRN ×3 (22:30→22:42)
[2018-11-25] MEDS: CEFAZOLIN 2 GM/50 ML (PMX) 50 ML IVPB SCH (22:31)
[2018-11-25] MEDS: SOD CHLORIDE 0.9% 1,000 ML IV SCH (22:37)
[2018-11-25] MEDS: HYDROmorphONE 1 MG/ML SYG IV PRN (23:40)
[2018-11-26] VITALS (9 sets, daily range): BP systolic 120–150; BP diastolic 60–89; PULSE 63–105; RESP 16–20
[2018-11-26] MEDS: HYDROCODONE/APAP (10/325) TAB PO PRN ×5 (02:03→23:01)
[2018-11-26] MEDS: HYDROmorphONE 1 MG/ML SYG IV PRN ×5 (02:31→20:25)
--- NOTE | 2018-11-26 05:17 | OPR ---
DATE OF OPERATION: 11/25/2018 PREOPERATIVE DIAGNOSIS: Lateral tibial plateau fracture of the left knee. POSTOPERATIVE DIAGNOSIS: Lateral tibial plateau fracture of the left knee. OPERATION PERFORMED: Open reduction and internal fixation of the lateral tibial plateau fracture of the left knee. ANESTHESIA: General anesthesia. SURGEON: Terra Galicia MD PROCEDURE AND FINDINGS: Under general anesthesia, the patient was placed in supine position on the o perating room table. A tourniquet was placed over the proximal portion of the left thigh and was inf lated up to 300 mmHg prior to the procedure. Usual prep and drape was done exposing the left leg. Proximal tibia was approached through the anterior midline longitudinal incision. By blunt and sharp dissection, the proximal tibial shaft along with the lateral tibial plateau was exposed. Evaluation revealed that there indeed was fracture involving the lateral tibial plateau with lateral displaceme nt. After identifying the problems and after confirming the alignment of the articular surface was a cceptable without much depression, open reduction was carried out by applying pressure over the later al tibial plateau on the lateral side obtaining satisfactory alignment. Then lateral tibial plateau was maintained in good alignment by carrying out the internal fixation with the special plate for lat eral tibial plateau. At the end of the internal fixation, the overall alignment of the lateral tibia l plateau was entirely satisfactory and the position of the fixation device was proper. After irriga tion and hemostasis, closure of the incision was carried out using 2-0 Vicryl for synovium and 0 Vicr yl for muscle and fascia. Further closure was carried out using 2-0 Vicryl for subcutaneous tissues and final closure was carried out with skin kateryna. Usual sterile pressure dressings were applied. The patient tolerated the entire procedure very well and was sent to the recovery room in good condit ion. Dictated By: TERRA GALICIA MD IK/NTS Conf#: [id number] DID#: [id number] CC: JAQUELINE SMITH MD; STANLEY HWANG MD;*EndCC*
[2018-11-26] MEDS: CEFAZOLIN 2 GM/50 ML (PMX) 50 ML IVPB SCH ×2 (05:25→14:58)
--- NOTE | 2018-11-26 05:41 | PN ---
Date/Time of Note Date/Time of Note DATE: 11/26/18 TIME: 05:40 Assessment/Plan VTE Prophylaxis Risk score (from Nsg)>0 risk: 13 SCD applied (from Nsg): Yes Pharmacological prophylaxis: LMWH Lines/Catheters IV Catheter Type (from Nrsg): Peripheral IV Urinary Cath still in place: No Assessment/Plan Hospital Course SUBJECTIVE: Complains of left knee pain. OBJECTIVE: Physical Exam General: Adequately build 38 year-old male lying in bed in no apparent distress. HEENT: Normocephalic, atraumatic. Eyes: Anicteric sclerae, conjunctivae clear. ENT: Nasal septum midline, oral mucosa moist. Neck supple, no JVD noticed. Respiratory: Bilaterally clear breath sounds. No use of accessory muscles of respiration. No adventitious breath sounds. Cardiovascular: S1, S2 heard. Regular rate and rhythm. Abdomen: Soft, nontender, and nondistended. Bowel sounds positive in all 4 quadrants. Genitourinary: Deferred. Extremities: No cyanosis, no clubbing. Left foot edema.. Peripheral pulses palpable. Left knee surgical dressing. Neurologic: Cranial nerves II through XII grossly intact. The patient is awake, alert, and oriented. Skin: Normal skin turgor. No skin rashes. Labs & Vitals per chart ASSESSMENT & PLAN 38-year-old male with no significant comorbidities who had a left knee pain/injury while playing soccer and he came to the emergency room with x-ray showing fracture of the tibial plateau with transverse metaphyseal component and additional component extending through the tibial spine region and lateral diametaphysis along with comminuted displaced fracture of the fibular neck who was admitted to inpatient setting for further treatment and evaluation. 1. Left tibial plateau fracture with fibula fracture -S/P ORIF on 11/25/2018. -Continue pain control. -Continue anticoagulation. 2. Normocytic anemia. -Etiology unclear. -Monitor H&H closely. 3. Fluids, electrolytes, and nutrition. -Regular diet. 4. DVT prophylaxis. -Subcutaneous Lovenox. 5. Plan. -PT evaluation. -Continue pain control. The patient was seen in collaboration with Dr. Yeh. Result Diagram: 11/26/18 0429 11/25/18 0452 Results 24hrs Laboratory Tests Test 11/25/18 23:15 11/26/18 04:29 Urine Color YELLOW Urine Clarity CLEAR Urine pH 6.0 Urine Specific [place] 1.011 Urine Ketones NEGATIVE Urine Nitrite NEGATIVE Urine Bilirubin NEGATIVE Urine Urobilinogen NEGATIVE Urine Leukocyte Esterase NEGATIVE Urine Hemoglobin NEGATIVE Urine Glucose NEGATIVE Urine Total Protein NEGATIVE White Blood Count 8.9 Red Blood Count 3.85 L Hemoglobin 11.2 L Hematocrit 34.3 L Mean Corpuscular Volume 89.1 Mean Corpuscular Hemoglobin 29.1 Mean Corpuscular Hemoglobin Concent 32.7 Red Cell Distribution Width 13.8 Platelet Count 344 Mean Platelet Volume 10.4 Immature Granulocytes % 0.400 Neutrophils % 85.9 H Lymphocytes % 9.7 L Monocytes % 3.8 Eosinophils % 0.1 Basophils % 0.1 Nucleated Red Blood Cells % 0.0 Immature Granulocytes # 0.040 H Neutrophils # 7.6 H Lymphocytes # 0.9 Monocytes # 0.3 Eosinophils # 0.0 Basophils # 0.0 Nucleated Red Blood Cells # 0.0 Exam/Review of Systems Exam Vitals Vital Signs Date Temp Pulse Resp B/P (MAP) Pulse Ox O2 O2 Flow FiO2 Time Delivery Rate 11/26/18 98.5 100 16 133/80 99 Nasal 2.0 03:38 (97) Cannula Intake and Output 11/25/18 11/25/18 11/26/18 1515:00 23:00 07:00 IntakeIntake Total 1900 ml 50 ml OutputOutput Total 400 ml 500 ml BalanceBalance -400 ml 1400 ml 50 ml Results Results 24hrs Laboratory Tests Test 11/25/18 23:15 11/26/18 04:29 Urine Color YELLOW Urine Clarity CLEAR Urine pH 6.0 Urine Specific [place] 1.011 Urine Ketones NEGATIVE Urine Nitrite NEGATIVE Urine Bilirubin NEGATIVE Urine Urobilinogen NEGATIVE Urine Leukocyte Esterase NEGATIVE Urine Hemoglobin NEGATIVE Urine Glucose NEGATIVE Urine Total Protein NEGATIVE White Blood Count 8.9 Red Blood Count 3.85 L Hemoglobin 11.2 L Hematocrit 34.3 L Mean Corpuscular Volume 89.1 Mean Corpuscular Hemoglobin 29.1 Mean Corpuscular Hemoglobin Concent 32.7 Red Cell Distribution Width 13.8 Platelet Count 344 Mean Platelet Volume 10.4 Immature Granulocytes % 0.400 Neutrophils % 85.9 H Lymphocytes % 9.7 L Monocytes % 3.8 Eosinophils % 0.1 Basophils % 0.1 Nucleated Red Blood Cells % 0.0 Immature Granulocytes # 0.040 H Neutrophils # 7.6 H Lymphocytes # 0.9 Monocytes # 0.3 Eosinophils # 0.0 Basophils # 0.0 Nucleated Red Blood Cells # 0.0 Medications Medication Current Medications IV Flush (NS 3 ml) 3 ml PER PROTOCOL IV ; Start 11/20/18 at 07:30 Ondansetron HCl (Zofran Inj) 4 mg Q6H PRN IV NAUSEA/VOMITING; Start 11/20/18 at 07:30 Acetaminophen (Tylenol Tab) 650 mg Q6H PRN PO .PAIN 1-3 OR TEMP; Start 11/20/18 at 07:30 Acetaminophen/ Hydrocodone Bitart ([place] (10/325)) 1 tab Q4H PRN PO MODERATE PAIN LEVEL 4-6 Last administered on 11/26/18at 02:03; Admin Dose 1 TAB; Start 11/21/18 at 12:00 Magnesium Hydroxide (Milk Of Mag) 30 ml Q12 PRN PO CONSTIPATION; Start 11/22/18 at 22:30 Senna (Senokot) 2 tab BID PO Last administered on 11/24/18at 19:54; Admin Dose 2 TAB; Start 11/23/18 at 09:00 Morphine Sulfate (morphine) 4 mg Q4H PRN IV .SEVERE PAIN 7-10 Last administered on 11/25/18at 12:26; Admin Dose 4 MG; Start 11/23/18 at 14:00 Sodium Chloride 1,000 ml @ 80 mls/hr [id number] IV Last administered on 11/25/18at 22:37; Admin Dose 80 MLS/HR; Start 11/25/18 at 21:36 IV Flush (NS 3 ml) 3 ml PER PROTOCOL IV ; Start 11/25/18 at 22:00 Oxycodone HCl (Roxicodone) 10 mg Q4H PRN PO .PAIN; Start 11/25/18 at 22:00 Hydromorphone HCl (Dilaudid) 1 mg Q3H PRN IV .BREAKTHROUGH PAIN Last administered on 11/26/18at 05:25; Admin Dose 1 MG; Start 11/25/18 at 22:00 Cefazolin Sodium/ Dextrose 50 ml @ 100 mls/hr Q8H IVPB Last administered on 11/26/18at 05:25; Admin Dose 100 MLS/HR; Start 11/25/18 at 22:00; Stop 11/26/18 at 14:29 Enoxaparin Sodium (Lovenox) 40 mg DAILY SC ; Start 11/26/18 at 09:00 ANNIKA JOY NP November 26, 2018 05:41
[2018-11-26] MEDS: SENNA TAB PO SCH ×2 (08:26→20:25)
[2018-11-26] MEDS: ENOXAPARIN 40 MG/0.4 ML SYG SC SCH (08:30)
[2018-11-26] MEDS ORDERED: ENOXAPARIN 40 MG/0.4 ML SYG SC SCH (09:00)
[2018-11-26] MEDS: SOD CHLORIDE 0.9% 1,000 ML IV SCH ×2 (10:06→20:30)
--- NOTE | 2018-11-26 17:51 | PN ---
DATE: 11/26/2018 First postop day. Stable vital signs. Postop H and H is 11.2/34.3. No signs of neurovascular compr omise. Postop x-ray shows excellent alignment of the fracture. This patient will not be able to put any weight on the left lower extremity for 6 to 8 weeks. He can be ambulated with walker or crutche s with absolutely no weightbearing on the left lower extremity for 6 to 8 weeks. Dictated By: TERRA GALICIA MD IK/NTS Conf#: [id number] DID#: [id number] CC: STANLEY HWANG MD; JAQUELINE SMITH MD;*EndCC*
[2018-11-26] MEDS: POLYETHYLENE GLYCOL 17 GM PACKET PO SCH (20:25)
[2018-11-27 01:21] VITALS: BP 138/78; PULSE 90; RESP 17
[2018-11-27] MEDS: HYDROCODONE/APAP (10/325) TAB PO PRN ×4 (03:34→19:14)
[2018-11-27 07:24] VITALS: BP 126/82; PULSE 94; RESP 18
--- NOTE | 2018-11-27 09:11 | PN ---
Date/Time of Note Date/Time of Note DATE: 11/27/18 TIME: 09:11 Assessment/Plan VTE Prophylaxis Risk score (from Ns)>0 risk: 9 SCD applied (from Nsg): Yes Pharmacological prophylaxis: LMWH Lines/Catheters IV Catheter Type (from Nrsg): Peripheral IV Urinary Cath still in place: No Assessment/Plan Hospital Course SUBJECTIVE: Complains of left knee pain. OBJECTIVE: Physical Exam General: Adequately build 38 year-old male lying in bed in no apparent distress. HEENT: Normocephalic, atraumatic. Eyes: Anicteric sclerae, conjunctivae clear. ENT: Nasal septum midline, oral mucosa moist. Neck supple, no JVD noticed. Respiratory: Bilaterally clear breath sounds. No use of accessory muscles of respiration. No adventitious breath sounds. Cardiovascular: S1, S2 heard. Regular rate and rhythm. Abdomen: Soft, nontender, and nondistended. Bowel sounds positive in all 4 quadrants. Genitourinary: Deferred. Extremities: No cyanosis, no clubbing. Left foot edema.. Peripheral pulses palpable. Left knee surgical dressing. Neurologic: Cranial nerves II through XII grossly intact. The patient is awake, alert, and oriented. Skin: Normal skin turgor. No skin rashes. Labs & Vitals per chart ASSESSMENT & PLAN 38-year-old male with no significant comorbidities who had a left knee pain/injury while playing soccer and he came to the emergency room with x-ray showing fracture of the tibial plateau with transverse metaphyseal component and additional component extending through the tibial spine region and lateral diametaphysis along with comminuted displaced fracture of the fibular neck who was admitted to inpatient setting for further treatment and evaluation. 1. Left tibial plateau fracture with fibula fracture. -S/P ORIF on 11/25/2018. -Continue pain control. -Continue anticoagulation. 2. Normocytic anemia. -Etiology unclear. -Monitor H&H closely. 3. Fluids, electrolytes, and nutrition. -Regular diet. 4. DVT prophylaxis. -Subcutaneous Lovenox. 5. Plan. -Continue PT. -Continue pain control. -The patient is to be nonweightbearing for the next 6 to 8 weeks as per orthopedic surgery. -Case management/social work working on health insurance approval. The patient was seen in collaboration with Dr. Yeh. Result Diagram: 11/27/18 0431 11/27/18 0434 Results 24hrs Laboratory Tests Test 11/27/18 04:31 11/27/18 04:34 White Blood Count 9.0 Red Blood Count 3.83 L Hemoglobin 11.3 L Hematocrit 34.8 L Mean Corpuscular Volume 90.9 Mean Corpuscular Hemoglobin 29.5 Mean Corpuscular Hemoglobin Concent 32.5 Red Cell Distribution Width 13.8 Platelet Count 350 Mean Platelet Volume 10.4 Immature Granulocytes % 0.300 Neutrophils % 65.9 Lymphocytes % 21.0 Monocytes % 9.6 Eosinophils % 2.9 Basophils % 0.3 Nucleated Red Blood Cells % 0.0 Immature Granulocytes # 0.030 Neutrophils # 5.9 Lymphocytes # 1.9 Monocytes # 0.9 Eosinophils # 0.3 Basophils # 0.0 Nucleated Red Blood Cells # 0.0 Sodium Level 143 Potassium Level 3.9 Chloride Level 106 Carbon Dioxide Level 27 Anion Gap 10 Blood Urea Nitrogen 12 Creatinine 0.61 Est Glomerular Filtrat Rate mL/min > 60 Glucose Level 127 Calcium Level 9.3 Phosphorus Level 3.7 Magnesium Level 2.2 Exam/Review of Systems Exam Vitals Vital Signs Date Temp Pulse Resp B/P (MAP) Pulse Ox O2 O2 Flow FiO2 Time Delivery Rate 11/27/18 98.9 94 18 126/82 95 07:24 (97) 11/27/18 Nasal 01:21 Cannula 11/26/18 2.0 07:09 Intake and Output 11/26/18 11/26/18 11/27/18 1515:00 23:00 07:00 IntakeIntake Total 920 ml 850 ml OutputOutput Total 800 ml 300 ml BalanceBalance 120 ml 850 ml -300 ml Results Results 24hrs Laboratory Tests Test 11/27/18 04:31 11/27/18 04:34 White Blood Count 9.0 Red Blood Count 3.83 L Hemoglobin 11.3 L Hematocrit 34.8 L Mean Corpuscular Volume 90.9 Mean Corpuscular Hemoglobin 29.5 Mean Corpuscular Hemoglobin Concent 32.5 Red Cell Distribution Width 13.8 Platelet Count 350 Mean Platelet Volume 10.4 Immature Granulocytes % 0.300 Neutrophils % 65.9 Lymphocytes % 21.0 Monocytes % 9.6 Eosinophils % 2.9 Basophils % 0.3 Nucleated Red Blood Cells % 0.0 Immature Granulocytes # 0.030 Neutrophils # 5.9 Lymphocytes # 1.9 Monocytes # 0.9 Eosinophils # 0.3 Basophils # 0.0 Nucleated Red Blood Cells # 0.0 Sodium Level 143 Potassium Level 3.9 Chloride Level 106 Carbon Dioxide Level 27 Anion Gap 10 Blood Urea Nitrogen 12 Creatinine 0.61 Est Glomerular Filtrat Rate mL/min > 60 Glucose Level 127 Calcium Level 9.3 Phosphorus Level 3.7 Magnesium Level 2.2 Medications Medication Current Medications IV Flush (NS 3 ml) 3 ml PER PROTOCOL IV ; Start 11/20/18 at 07:30 Ondansetron HCl (Zofran Inj) 4 mg Q6H PRN IV NAUSEA/VOMITING; Start 11/20/18 at 07:30 Acetaminophen (Tylenol Tab) 650 mg Q6H PRN PO .PAIN 1-3 OR TEMP; Start 11/20/18 at 07:30 Acetaminophen/ Hydrocodone Bitart ([place] (10/325)) 1 tab Q4H PRN PO MODERATE PAIN LEVEL 4-6 Last administered on 11/27/18at 03:34; Admin Dose 1 TAB; Start 11/21/18 at 12:00 Magnesium Hydroxide (Milk Of Mag) 30 ml Q12 PRN PO CONSTIPATION; Start 11/22/18 at 22:30 Senna (Senokot) 2 tab BID PO Last administered on 11/26/18at 20:25; Admin Dose 2 TAB; Start 11/23/18 at 09:00 Morphine Sulfate (morphine) 4 mg Q4H PRN IV .SEVERE PAIN 7-10 Last administered on 11/25/18at 12:26; Admin Dose 4 MG; Start 11/23/18 at 14:00 Sodium Chloride 1,000 ml @ 80 mls/hr [id number] IV Last administered on 11/25/18at 22:37; Admin Dose 80 MLS/HR; Start 11/25/18 at 21:36 IV Flush (NS 3 ml) 3 ml PER PROTOCOL IV ; Start 11/25/18 at 22:00 Oxycodone HCl (Roxicodone) 10 mg Q4H PRN PO .PAIN; Start 11/25/18 at 22:00 Enoxaparin Sodium (Lovenox) 40 mg DAILY SC Last administered on 11/26/18at 08:30; Admin Dose 40 MG; Start 11/26/18 at 09:00 Hydromorphone HCl (Dilaudid) 1 mg Q4H PRN IV .BREAKTHROUGH PAIN Last administered on 11/26/18at 20:25; Admin Dose 1 MG; Start 11/26/18 at 10:00 Polyethylene Glycol (Miralax) 17 gm BID PO ; Start 11/26/18 at 21:00 ANNIKA JOY NP November 27, 2018 09:11
[2018-11-27] MEDS: POLYETHYLENE GLYCOL 17 GM PACKET PO SCH ×2 (09:15→20:39)
[2018-11-27] MEDS: SENNA TAB PO SCH ×2 (09:16→20:40)
[2018-11-27] MEDS: ENOXAPARIN 40 MG/0.4 ML SYG SC SCH (09:16)
[2018-11-27] MEDS: HYDROmorphONE 1 MG/ML SYG IV PRN (12:22)
[2018-11-27 13:28] VITALS: BP 124/77; PULSE 87; RESP 18
[2018-11-27 20:14] VITALS: BP 127/70; PULSE 77; RESP 18
[2018-11-28] MEDS: HYDROmorphONE 1 MG/ML SYG IV PRN ×2 (01:02→09:08)
[2018-11-28 02:15] VITALS: BP 123/77; PULSE 86; RESP 18
[2018-11-28] MEDS: HYDROCODONE/APAP (10/325) TAB PO PRN ×2 (05:56→15:38)
[2018-11-28 07:28] VITALS: BP 121/68; PULSE 82; RESP 19
[2018-11-28] MEDS: POLYETHYLENE GLYCOL 17 GM PACKET PO SCH ×2 (09:08→21:00)
[2018-11-28] MEDS: SENNA TAB PO SCH ×2 (09:08→21:00)
[2018-11-28] MEDS: ENOXAPARIN 40 MG/0.4 ML SYG SC SCH (09:11)
--- NOTE | 2018-11-28 09:26 | PN ---
Date/Time of Note Date/Time of Note DATE: 11/28/18 TIME: 09:26 Assessment/Plan VTE Prophylaxis Risk score (from Ns)>0 risk: 8 SCD applied (from Nsg): Yes Pharmacological prophylaxis: LMWH Lines/Catheters IV Catheter Type (from Nrsg): Saline Lock Urinary Cath still in place: No Assessment/Plan Hospital Course SUBJECTIVE: Complains of left knee pain. OBJECTIVE: Physical Exam General: Adequately build 38 year-old male lying in bed in no apparent distress. HEENT: Normocephalic, atraumatic. Eyes: Anicteric sclerae, conjunctivae clear. ENT: Nasal septum midline, oral mucosa moist. Neck supple, no JVD noticed. Respiratory: Bilaterally clear breath sounds. No use of accessory muscles of respiration. No adventitious breath sounds. Cardiovascular: S1, S2 heard. Regular rate and rhythm. Abdomen: Soft, nontender, and nondistended. Bowel sounds positive in all 4 quadrants. Genitourinary: Deferred. Extremities: No cyanosis, no clubbing. Left foot edema.. Peripheral pulses palpable. Left knee surgical dressing. Neurologic: Cranial nerves II through XII grossly intact. The patient is awake, alert, and oriented. Skin: Normal skin turgor. No skin rashes. Labs & Vitals per chart ASSESSMENT & PLAN 38-year-old male with no significant comorbidities who had a left knee pain/injury while playing soccer and he came to the emergency room with x-ray showing fracture of the tibial plateau with transverse metaphyseal component and additional component extending through the tibial spine region and lateral diametaphysis along with comminuted displaced fracture of the fibular neck who was admitted to inpatient setting for further treatment and evaluation. 1. Left tibial plateau fracture with fibula fracture. -S/P ORIF on 11/25/2018. -Continue pain control. -Continue anticoagulation. 2. Normocytic anemia. -Etiology unclear. -Monitor H&H closely. 3. Fluids, electrolytes, and nutrition. -Regular diet. 4. DVT prophylaxis. -Subcutaneous Lovenox. 5. Plan. -Continue PT. -Continue pain control. -The patient is to be nonweightbearing for the next 6 to 8 weeks as per orthopedic surgery. -Case management/social work working on health insurance approval. The patient was seen in collaboration with Dr. Yeh. Result Diagram: 11/28/18 0433 11/28/18 0433 Results 24hrs Laboratory Tests Test 11/28/18 04:33 White Blood Count 8.9 Red Blood Count 3.94 L Hemoglobin 11.7 L Hematocrit 35.4 L Mean Corpuscular Volume 89.8 Mean Corpuscular Hemoglobin 29.7 Mean Corpuscular Hemoglobin Concent 33.1 Red Cell Distribution Width 13.8 Platelet Count 378 Mean Platelet Volume 10.1 Immature Granulocytes % 0.500 H Neutrophils % 51.1 Lymphocytes % 36.2 Monocytes % 8.1 Eosinophils % 3.8 Basophils % 0.3 Nucleated Red Blood Cells % 0.0 Immature Granulocytes # 0.040 H Neutrophils # 4.5 Lymphocytes # 3.2 H Monocytes # 0.7 Eosinophils # 0.3 Basophils # 0.0 Nucleated Red Blood Cells # 0.0 Sodium Level 142 Potassium Level 4.3 Chloride Level 103 Carbon Dioxide Level 29 Anion Gap 10 Blood Urea Nitrogen 14 Creatinine 0.70 Est Glomerular Filtrat Rate mL/min > 60 Glucose Level 120 Calcium Level 9.8 Phosphorus Level 4.7 Magnesium Level 2.2 Exam/Review of Systems Exam Vitals Vital Signs Date Temp Pulse Resp B/P (MAP) Pulse Ox O2 O2 Flow FiO2 Time Delivery Rate 11/28/18 98.2 82 19 121/68 98 07:28 (85) 11/27/18 Nasal 01:21 Cannula 11/26/18 2.0 07:09 Intake and Output 11/27/18 11/27/18 11/28/18 1515:00 23:00 07:00 IntakeIntake Total 520 ml 600 ml 480 ml OutputOutput Total 350 ml 300 ml 1300 ml BalanceBalance 170 ml 300 ml -820 ml Results Results 24hrs Laboratory Tests Test 11/28/18 04:33 White Blood Count 8.9 Red Blood Count 3.94 L Hemoglobin 11.7 L Hematocrit 35.4 L Mean Corpuscular Volume 89.8 Mean Corpuscular Hemoglobin 29.7 Mean Corpuscular Hemoglobin Concent 33.1 Red Cell Distribution Width 13.8 Platelet Count 378 Mean Platelet Volume 10.1 Immature Granulocytes % 0.500 H Neutrophils % 51.1 Lymphocytes % 36.2 Monocytes % 8.1 Eosinophils % 3.8 Basophils % 0.3 Nucleated Red Blood Cells % 0.0 Immature Granulocytes # 0.040 H Neutrophils # 4.5 Lymphocytes # 3.2 H Monocytes # 0.7 Eosinophils # 0.3 Basophils # 0.0 Nucleated Red Blood Cells # 0.0 Sodium Level 142 Potassium Level 4.3 Chloride Level 103 Carbon Dioxide Level 29 Anion Gap 10 Blood Urea Nitrogen 14 Creatinine 0.70 Est Glomerular Filtrat Rate mL/min > 60 Glucose Level 120 Calcium Level 9.8 Phosphorus Level 4.7 Magnesium Level 2.2 Medications Medication Current Medications IV Flush (NS 3 ml) 3 ml PER PROTOCOL IV ; Start 11/20/18 at 07:30 Ondansetron HCl (Zofran Inj) 4 mg Q6H PRN IV NAUSEA/VOMITING; Start 11/20/18 at 07:30 Acetaminophen (Tylenol Tab) 650 mg Q6H PRN PO .PAIN 1-3 OR TEMP; Start 11/20/18 at 07:30 Acetaminophen/ Hydrocodone Bitart ([place] (10325)) 1 tab Q4H PRN PO MODERATE PAIN LEVEL 4-6 Last administered on 11/28/18at 05:56; Admin Dose 1 TAB; Start 11/21/18 at 12:00 Magnesium Hydroxide (Milk Of Mag) 30 ml Q12 PRN PO CONSTIPATION; Start 11/22/18 at 22:30 Senna (Senokot) 2 tab BID PO Last administered on 11/28/18at 09:08; Admin Dose 2 TAB; Start 11/23/18 at 09:00 Morphine Sulfate (morphine) 4 mg Q4H PRN IV .SEVERE PAIN 7-10 Last administered on 11/25/18at 12:26; Admin Dose 4 MG; Start 11/23/18 at 14:00 IV Flush (NS 3 ml) 3 ml PER PROTOCOL IV Last administered on 11/28/18at 01:04; Admin Dose 3 ML; Start 11/25/18 at 22:00 Oxycodone HCl (Roxicodone) 10 mg Q4H PRN PO .PAIN; Start 11/25/18 at 22:00 Enoxaparin Sodium (Lovenox) 40 mg DAILY SC Last administered on 11/28/18at 09:11; Admin Dose 40 MG; Start 11/26/18 at 09:00 Hydromorphone HCl (Dilaudid) 1 mg Q4H PRN IV .BREAKTHROUGH PAIN Last administered on 11/28/18at 09:08; Admin Dose 1 MG; Start 5/15/19 at 10:00 Polyethylene Glycol (Miralax) 17 gm BID PO Last administered on 11/28/18at 09:08; Admin Dose 17 GM; Start 11/26/18 at 21:00 ANNIKA JOY NP November 28, 2018 09:26
[2018-11-28 15:07] VITALS: BP 126/72; PULSE 78; RESP 18
[2018-11-28 19:15] VITALS: BP 137/83; PULSE 95; RESP 18
[2018-11-29] MEDS: HYDROmorphONE 1 MG/ML SYG IV PRN (00:47)
[2018-11-29 01:57] VITALS: BP 118/69; PULSE 92; RESP 18
[2018-11-29 07:43] VITALS: BP 119/75; PULSE 78; RESP 18
--- NOTE | 2018-11-29 08:40 | PN ---
Date/Time of Note Date/Time of Note DATE: 11/29/18 TIME: 08:39 Assessment/Plan VTE Prophylaxis Risk score (from Ns)>0 risk: 3 SCD applied (from Ns): No SCD contraindicated: other Pharmacological prophylaxis: LMWH Lines/Catheters IV Catheter Type (from [facility]): Saline Lock Urinary Cath still in place: No Assessment/Plan Hospital Course SUBJECTIVE: Complains of left knee pain. OBJECTIVE: Physical Exam General: Adequately build 38 year-old male lying in bed in no apparent distress. HEENT: Normocephalic, atraumatic. Eyes: Anicteric sclerae, conjunctivae clear. ENT: Nasal septum midline, oral mucosa moist. Neck supple, no JVD noticed. Respiratory: Bilaterally clear breath sounds. No use of accessory muscles of respiration. No adventitious breath sounds. Cardiovascular: S1, S2 heard. Regular rate and rhythm. Abdomen: Soft, nontender, and nondistended. Bowel sounds positive in all 4 quadrants. Genitourinary: Deferred. Extremities: No cyanosis, no clubbing. Left foot edema.. Peripheral pulses palpable. Left knee surgical dressing. Neurologic: Cranial nerves II through XII grossly intact. The patient is awake, alert, and oriented. Skin: Normal skin turgor. No skin rashes. Labs & Vitals per chart ASSESSMENT & PLAN 38-year-old male with no significant comorbidities who had a left knee pain/injury while playing soccer and he came to the emergency room with x-ray showing fracture of the tibial plateau with transverse metaphyseal component and additional component extending through the tibial spine region and lateral diametaphysis along with comminuted displaced fracture of the fibular neck who was admitted to inpatient setting for further treatment and evaluation. 1. Left tibial plateau fracture with fibula fracture. -S/P ORIF on 11/25/2018. -Continue pain control. -Continue anticoagulation. 2. Normocytic anemia. -Etiology unclear. -Monitor H&H closely. 3. Fluids, electrolytes, and nutrition. -Regular diet. 4. DVT prophylaxis. -Subcutaneous Lovenox. 5. Plan. -Continue PT. -Continue pain control. -The patient is to be nonweightbearing for the next 6 to 8 weeks as per orthopedic surgery. -Case management/social work working on health insurance approval. The patient was seen in collaboration with Dr. Yeh. Result Diagram: 11/28/18 0433 11/28/18 0433 Exam/Review of Systems Exam Vitals Vital Signs Date Temp Pulse Resp B/P (MAP) Pulse Ox O2 O2 Flow FiO2 Time Delivery Rate 11/29/18 99.0 78 18 119/75 98 07:43 (90) 11/27/18 Nasal 01:21 Cannula 11/26/18 2.0 07:09 Intake and Output 11/28/18 11/28/18 11/29/18 1515:00 23:00 07:00 IntakeIntake Total 1040 ml 420 ml OutputOutput Total 800 ml 500 ml BalanceBalance 240 ml -80 ml Medications Medication Current Medications IV Flush (NS 3 ml) 3 ml PER PROTOCOL IV ; Start 11/20/18 at 07:30 Ondansetron HCl (Zofran Inj) 4 mg Q6H PRN IV NAUSEA/VOMITING; Start 11/20/18 at 07:30 Acetaminophen (Tylenol Tab) 650 mg Q6H PRN PO .PAIN 1-3 OR TEMP; Start 11/20/18 at 07:30 Acetaminophen/ Hydrocodone Bitart ([place] (10/325)) 1 tab Q4H PRN PO MODERATE PAIN LEVEL 4-6 Last administered on 11/28/18at 15:38; Admin Dose 1 TAB; Start 11/21/18 at 12:00 Magnesium Hydroxide (Milk Of Mag) 30 ml Q12 PRN PO CONSTIPATION; Start 11/22/18 at 22:30 Senna (Senokot) 2 tab BID PO Last administered on 11/28/18at 09:08; Admin Dose 2 TAB; Start 11/23/18 at 09:00 Morphine Sulfate (morphine) 4 mg Q4H PRN IV .SEVERE PAIN 7-10 Last administered on 11/25/18at 12:26; Admin Dose 4 MG; Start 11/23/18 at 14:00 IV Flush (NS 3 ml) 3 ml PER PROTOCOL IV Last administered on 11/28/18at 01:04; Admin Dose 3 ML; Start 11/25/18 at 22:00 Oxycodone HCl (Roxicodone) 10 mg Q4H PRN PO .PAIN; Start 11/25/18 at 22:00 Enoxaparin Sodium (Lovenox) 40 mg DAILY SC Last administered on 11/28/18at 09:11; Admin Dose 40 MG; Start 11/26/18 at 09:00 Hydromorphone HCl (Dilaudid) 1 mg Q4H PRN IV .BREAKTHROUGH PAIN Last administered on 11/29/18at 00:47; Admin Dose 1 MG; Start 11/26/18 at 10:00 Polyethylene Glycol (Miralax) 17 gm BID PO Last administered on 11/28/18at 09:08; Admin Dose 17 GM; Start 11/26/18 at 21:00 ANNIKA JOY NP November 29, 2018 08:40
[2018-11-29] MEDS: SENNA TAB PO SCH ×2 (09:00→20:25)
[2018-11-29] MEDS: POLYETHYLENE GLYCOL 17 GM PACKET PO SCH ×2 (09:53→20:25)
[2018-11-29] MEDS: HYDROCODONE/APAP (10/325) TAB PO PRN ×3 (09:53→22:08)
[2018-11-29] MEDS: ENOXAPARIN 40 MG/0.4 ML SYG SC SCH (09:58)
[2018-11-29 14:00] VITALS: BP 116/66; PULSE 80; RESP 18
[2018-11-29 19:30] VITALS: BP 149/88; PULSE 75; RESP 18
[2018-11-30 01:55] VITALS: BP 118/75; PULSE 75; RESP 18
--- NOTE | 2018-11-30 07:43 | PN ---
Date/Time of Note Date/Time of Note DATE: 11/30/18 TIME: 07:43 Assessment/Plan VTE Prophylaxis Risk score (from Ns)>0 risk: 8 SCD applied (from Nsg): Yes Pharmacological prophylaxis: LMWH Lines/Catheters IV Catheter Type (from Nrsg): Saline Lock Urinary Cath still in place: No Assessment/Plan Hospital Course SUBJECTIVE: Complains of left knee pain. OBJECTIVE: Physical Exam General: Adequately build 38 year-old male lying in bed in no apparent distress. HEENT: Normocephalic, atraumatic. Eyes: Anicteric sclerae, conjunctivae clear. ENT: Nasal septum midline, oral mucosa moist. Neck supple, no JVD noticed. Respiratory: Bilaterally clear breath sounds. No use of accessory muscles of respiration. No adventitious breath sounds. Cardiovascular: S1, S2 heard. Regular rate and rhythm. Abdomen: Soft, nontender, and nondistended. Bowel sounds positive in all 4 quadrants. Genitourinary: Deferred. Extremities: No cyanosis, no clubbing. Left foot edema.. Peripheral pulses palpable. Left knee surgical dressing. Neurologic: Cranial nerves II through XII grossly intact. The patient is awake, alert, and oriented. Skin: Normal skin turgor. No skin rashes. Labs & Vitals per chart ASSESSMENT & PLAN 38-year-old male with no significant comorbidities who had a left knee pain/injury while playing soccer and he came to the emergency room with x-ray showing fracture of the tibial plateau with transverse metaphyseal component and additional component extending through the tibial spine region and lateral diametaphysis along with comminuted displaced fracture of the fibular neck who was admitted to inpatient setting for further treatment and evaluation. 1. Left tibial plateau fracture with fibula fracture. -S/P ORIF on 11/25/2018. -Continue pain control. -Continue anticoagulation. 2. Normocytic anemia. -Etiology unclear. -Monitor H&H closely. 3. Fluids, electrolytes, and nutrition. -Regular diet. 4. DVT prophylaxis. -Subcutaneous Lovenox. 5. Plan. -Continue PT. -Continue pain control. -The patient is to be nonweightbearing for the next 6 to 8 weeks as per orthopedic surgery. -Case management/social work working on health insurance approval. The patient was seen in collaboration with Dr. Yeh. Result Diagram: 11/28/18 0433 11/28/18 0433 Exam/Review of Systems Exam Vitals Vital Signs Date Temp Pulse Resp B/P (MAP) Pulse Ox O2 O2 Flow FiO2 Time Delivery Rate 11/30/18 98.4 75 18 118/75 97 01:55 (89) 11/29/18 Room Air 14:00 11/26/18 2.0 07:09 Intake and Output 11/29/18 11/29/18 11/30/18 1515:00 23:00 07:00 IntakeIntake Total 1570 ml 240 ml OutputOutput Total 500 ml 1000 ml BalanceBalance 1070 ml -760 ml Medications Medication Current Medications IV Flush (NS 3 ml) 3 ml PER PROTOCOL IV ; Start 11/20/18 at 07:30 Ondansetron HCl (Zofran Inj) 4 mg Q6H PRN IV NAUSEA/VOMITING; Start 11/20/18 at 07:30 Acetaminophen (Tylenol Tab) 650 mg Q6H PRN PO .PAIN 1-3 OR TEMP; Start 11/20/18 at 07:30 Acetaminophen/ Hydrocodone Bitart (Remus (10/325)) 1 tab Q4H PRN PO MODERATE PAIN LEVEL 4-6 Last administered on 11/29/18at 22:08; Admin Dose 1 TAB; Start 11/21/18 at 12:00 Magnesium Hydroxide (Milk Of Mag) 30 ml Q12 PRN PO CONSTIPATION; Start 11/22/18 at 22:30 Senna (Senokot) 2 tab BID PO Last administered on 11/28/18at 09:08; Admin Dose 2 TAB; Start 11/23/18 at 09:00 Morphine Sulfate (morphine) 4 mg Q4H PRN IV .SEVERE PAIN 7-10 Last administered on 11/25/18at 12:26; Admin Dose 4 MG; Start 11/23/18 at 14:00 IV Flush (NS 3 ml) 3 ml PER PROTOCOL IV Last administered on 11/28/18at 01:04; Admin Dose 3 ML; Start 11/25/18 at 22:00 Oxycodone HCl (Roxicodone) 10 mg Q4H PRN PO .PAIN; Start 11/25/18 at 22:00 Enoxaparin Sodium (Lovenox) 40 mg DAILY SC Last administered on 11/29/18at 09:58; Admin Dose 40 MG; Start 11/26/18 at 09:00 Hydromorphone HCl (Dilaudid) 1 mg Q4H PRN IV .BREAKTHROUGH PAIN Last administered on 11/29/18at 00:47; Admin Dose 1 MG; Start 11/26/18 at 10:00 Polyethylene Glycol (Miralax) 17 gm BID PO Last administered on 11/29/18at 09:53; Admin Dose 17 GM; Start 11/26/18 at 21:00 ANNIKA JOY NP November 30, 2018 07:43
[2018-11-30 08:08] VITALS: BP 132/81; PULSE 71; RESP 18
[2018-11-30] MEDS: SENNA TAB PO SCH ×2 (09:02→20:49)
[2018-11-30] MEDS: POLYETHYLENE GLYCOL 17 GM PACKET PO SCH ×2 (09:02→20:48)
[2018-11-30] MEDS: ENOXAPARIN 40 MG/0.4 ML SYG SC SCH (09:06)
[2018-11-30] MEDS: HYDROCODONE/APAP (10/325) TAB PO PRN ×3 (09:07→20:50)
[2018-11-30 15:09] VITALS: BP 143/81; PULSE 84; RESP 18
[2018-11-30 20:17] VITALS: BP 125/70; PULSE 98; RESP 18
[2018-12-01 01:53] VITALS: BP 115/64; PULSE 84; RESP 18
[2018-12-01 07:42] VITALS: BP 125/77; RESP 19
[2018-12-01] MEDS: POLYETHYLENE GLYCOL 17 GM PACKET PO SCH (09:00)
[2018-12-01] MEDS: SENNA TAB PO SCH (09:01)
[2018-12-01] MEDS: ENOXAPARIN 40 MG/0.4 ML SYG SC SCH (09:02)
[2018-12-01] MEDS: HYDROCODONE/APAP (10/325) TAB PO PRN (12:09)
--- NOTE | 2018-12-01 17:23 | PN ---
Date/Time of Note Date/Time of Note DATE: 12/01/18 TIME: 17:22 Assessment/Plan VTE Prophylaxis Risk score (from Nsg)>0 risk: 7 SCD applied (from Nsg): Yes SCD contraindicated: low risk/ambulating Pharmacological prophylaxis: LMWH Lines/Catheters IV Catheter Type (from Nrsg): Saline Lock Urinary Cath still in place: No Assessment/Plan Hospital Course A/P 1. Tibial Plateau fracture; stable; NWB, Status post ORIF surgery. 2. Ftt; pt/ot/ dme soon . Failure to thrive. Home versus acute rehab S: 11/20: no events 11/21: no distress. able to participate w soccer w/o any dyspnea/ chest pain. no FH of early cad/ cancer/ stroke. 11/22: No events 11/23: mod pain; no dyspnea 12/01: Feels okay. No fever diarrhea dyspnea O: vss PE no pallor reg s1s2 no mrg ctab bs+ nt nd no r r g no edema; braced lt leg Result Diagram: 11/28/1843211/28/18 043 Exam/Review of Systems Exam Vitals Vital Signs Date Temp Pulse Resp B/P (MAP) Pulse Ox O2 O2 Flow FiO2 Time Delivery Rate 12/01/18 98.2 19 125/77 98 07:42 (93) 12/01/18 84 Room Air 01:53 Intake and Output 11/30/18 11/30/18 12/01/18 1414:59 22:59 06:59 IntakeIntake Total 840 ml 240 ml 400 ml OutputOutput Total 1100 ml BalanceBalance 840 ml 240 ml -700 ml Medications Medication Current Medications IV Flush (NS 3 ml) 3 ml PER PROTOCOL IV ; Start 11/20/18 at 07:30 Ondansetron HCl (Zofran Inj) 4 mg Q6H PRN IV NAUSEA/VOMITING; Start 11/20/18 at 07:30 Acetaminophen (Tylenol Tab) 650 mg Q6H PRN PO .PAIN 1-3 OR TEMP Last administer ed on 12/01/18at 06:52; Admin Dose 650 MG; Start 11/20/18 at 07:30 Acetaminophen/ Hydrocodone Bitart (Amber (10/325)) 1 tab Q4H PRN PO MODERATE PAIN LEVEL 4-6 Last administered on 12/01/18 12:09; Admin Dose 1 TAB; Start 11/21/18 at 12:00 Magnesium Hydroxide (Milk Of Mag) 30 ml Q12 PRN PO CONSTIPATION; Start 11/22/18 at 22:30 Senna (Senokot) 2 tab BID PO Last administered on 12/01/18 09:01; Admin Dose 2 TAB; Start 11/23/18 at 09:00 Morphine Sulfate (morphine) 4 mg Q4H PRN IV .SEVERE PAIN 7-10 Last administered on 11/25/18 12:26; Admin Dose 4 MG; Start 11/23/18 at 14:00 IV Flush (NS 3 ml) 3 ml PER PROTOCOL IV Last administered on 11/28/18 01:04; Admin Dose 3 ML; Start 11/25/18 at 22:00 Oxycodone HCl (Roxicodone) 10 mg Q4H PRN PO .PAIN; Start 11/25/18 at 22:00 Enoxaparin Sodium (Lovenox) 40 mg DAILY SC Last administered on 12/01/18 09:02; Admin Dose 40 MG; Start 11/26/18 at 09:00 Hydromorphone HCl (Dilaudid) 1 mg Q4H PRN IV .BREAKTHROUGH PAIN Last administered on 11/29/18 00:47; Admin Dose 1 MG; Start 11/26/18 at 10:00 Polyethylene Glycol (Miralax) 17 gm BID PO Last administered on 11/30/18 09:02; Admin Dose 17 GM; Start 11/26/18 at 21:00 JAQUELINE SMITH MD December 01, 2018 17:23
[2018-12-01 19:44] VITALS: BP 145/66; PULSE 80; RESP 16
== END 2018-12-01 20:15 | disposition home or self-care (01) | DRG 494 ==
LOC: FTE 22:20 → MS1 11-20 05:15
PROVIDERS: ADMIT Internal Medicine; ATTEND Internal Medicine
PROC: 0QSH04Z Reposition Left Tibia with Internal Fixation Device, Open Approach (ICD-10-PCS; principal; 2018-11-25 18:30)
DX: S82.142A Displaced bicondylar fracture of left tibia, initial encounter for closed fracture (principal); S82.492A Other fracture of shaft of left fibula, initial encounter for closed fracture; X58.XXXA Exposure to other specified factors, initial encounter; Y93.66 Activity, soccer; Y92.322 Soccer field as the place of occurrence of the external cause; Y99.8 Other external cause status; D64.9 Anemia, unspecified
CPT/HCPCS: 36415; 73560; 73562; 73700; 80048; 80053; 81003; 83036; 83735; 84100; 84443; 84484; 85025; 85610; 85730; 93005; 93306; 97116; 97161; 97530; C1713; J0690; J1100; J1170; J1650; J1885; J2250; J2270; J2405; J2795; J3010; J7030; L1832